=== PATIENT | female | born 1950 | race Caucasian/White ===

== ENCOUNTER → 2016-11-30 | Outpatient (CLI) | payer MEDICARE ==
[2016-11-30 16:34] VITALS: BP 129/60; PULSE 98; RESP 16; TEMP 98.1; BMI 48.7
== END | disposition home or self-care (01) ==
LOC: BARWHC3 15:27
PROVIDERS: ATTEND Surgery Plastic and Reconstructive Surgery
DX: Z01.818 Encounter for other preprocedural examination (principal); E66.01 Morbid (severe) obesity due to excess calories; D50.8 Other iron deficiency anemias; E44.0 Moderate protein-calorie malnutrition; E55.9 Vitamin D deficiency, unspecified; E11.9 Type 2 diabetes mellitus without complications; Z68.42 Body mass index [BMI] 45.0-49.9, adult
CPT/HCPCS: 99201

== ENCOUNTER 2017-01-04 06:44 | Day surgery (SDC) | payer MEDICARE ==
[2017-01-02 16:14] VITALS: BMI 48.7
[~2017-01-04 06:44] MED LIST: LACTATED RINGERS 1,000 ML IV SCH
[2017-01-04 07:26] VITALS: RESP 20; TEMP 98
[2017-01-04] MEDS ORDERED: LIDOCAINE 1% INJ 10MG/ML (20 ML MDV) ONE (07:30)
[2017-01-04] MEDS ORDERED: PROPOFOL 10 MG/ML 20 ML VIAL IV ONE (07:30)
[2017-01-04 07:31] LABS: Glucose,Whole Blood 99 mg/dL (75-99)
--- NOTE | 2017-01-04 07:37 | P.GSHP ---
History of Present Illness H&P Date: 01/04/17 CHIEF COMPLAINT: GERD HISTORY OF PRESENT ILLNESS: The patient is a 66-year-old female who presents reports gastroesophageal reflux disease. Upper endoscopy was offered for further evaluation and management. PAST MEDICAL HISTORY: Please see list. PAST SURGICAL HISTORY: Please see list. MEDICATIONS: Please see list. ALLERGIES: Please see list. SOCIAL HISTORY: No illicit drug use FAMILY HISTORY: No reports of Crohn disease or ulcerative colitis. REVIEW OF ORGAN SYSTEMS: CONSTITUTIONAL: No reports of fevers or chills. GI: Denies any blood in stools or constipation. PHYSICAL EXAM: VITAL SIGNS: Stable GENERAL: Well-developed and pleasant in no acute distress. HEENT: No scleral icterus. Extraocular movements grossly intact. Moist buccal mucosa. NECK: Supple without lymphadenopathy. CHEST: Unlabored respirations. Equal bilateral excursions. CARDIOVASCULAR: Regular rate and rhythm. Distal 2+ pulses. ABDOMEN: Soft, nondistended. MUSCULOSKELETAL: No clubbing, cyanosis, or edema. ASSESSMENT: 1. Gastroesophageal reflux disease PLAN: 1. 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 , RECEIVES INJECTIONS IN HER RIGHT EYE -(EYLEA) History of Any Multi-Drug Resistant Organisms: None Reported Past Surgical History: Section, Orthopedic Surgery Additional Past Surgical History / Comment(s): TRIGGER FINGER SURGERY, RIGHT TOTAL HIP, CATARACTS, LEFT EYE SURGERY FOR GLAUCOMA. Past Anesthesia/Blood Transfusion Reactions: No Reported Reaction Past Psychological History: No Psychological Hx Reported Smoking Status: Never smoker Past Alcohol Use History: None Reported Past Drug Use History: None Reported - Past Family History Father Family Medical History: Cancer Additional Family Medical History / Comment(s): URETER, COLON & PANCREATIC CANCER. Mother Family Medical History: Cancer Additional Family Medical History / Comment(s): KIDNEY CANCER WITH METS TO BRAIN. Medications and Allergies Home Medications Medication Instructions Recorded Confirmed Type Aspirin 325 mg PO DAILY 11/30/16 01/04/17 History Insulin Glargine [Lantus] 20 units SQ HS PRN 11/30/16 01/04/17 History Omeprazole [PriLOSEC] 20 mg PO DAILY 11/30/16 01/04/17 History metFORMIN HCL 1,000 tab PO BID 11/30/16 01/04/17 History Cholecalciferol [Vitamin D3] 1,000 unit PO DAILY 01/02/17 01/04/17 History Glimepiride [Amaryl] 4 mg PO BID 01/02/17 01/04/17 History Insulin Glargine [Lantus] 24 unit SQ HS PRN 01/02/17 01/04/17 History Krill Oil (Unknown Dose) 1 cap PO DAILY 01/02/17 History Lisinopril [Zestril] 10 mg PO DAILY 01/02/17 01/04/17 History Multivitamin [Multivitamins Adult 2 tab PO DAILY 01/02/17 01/04/17 History Gummies] Vitamin E Acetate [Vitamin E] 200 unit PO DAILY 01/02/17 01/04/17 History Allergies Allergy/AdvReac Type Severity Reaction Status Date / Time celecoxib [From Celebrex] Allergy Rash/Hives Verified 01/02/17 15:29 Surgical - Exam Vital Signs Temp Pulse Resp BP Pulse Ox 98.0 F 82 20 171/76 98 01/04/17 07:24 01/04/17 07:24 01/04/17 07:24 01/04/17 07:24 01/04/17 07:24
--- NOTE | 2017-01-04 07:55 | P.PCN ---
Date of Procedure: 01/04/17 Description of Procedure: PREOPERATIVE DIAGNOSIS: Gastroesophageal reflux disease. Morbid obesity. POSTOPERATIVE DIAGNOSIS: Morbid obesity. Gastritis. Gastroesophageal reflux disease. Diaphragmatic hiatal hernia without obstruction. Gastric polyps at GE junction. Erosive esophagitis. OPERATION: Esophagogastroduodenoscopy with snare polypectomy at GE junction. Esophagogastroduodenoscopy with biopsies along antrum. SURGEON: Ximena Ferrera MD ANESTHESIA: MAC. INDICATIONS: The patient is a 66-year-old female who presents with a history of reflux disease. Benefits and risks of the procedure were described. Informed consent was obtained. DESCRIPTION: The patient was brought into the endoscopy suite and laid in the left lateral decubitus position. An Olympus gastroscope was passed along the posterior oropharynx down to the distal esophagus where the squamocolumnar junction was encountered at 38 cm from the incisors. The stomach was entered and no bile reflux was found. Additional findings are listed below. Biopsies with cold forceps were obtained of the antrum. The first through third portion of the duodenum was examined and unremarkable. Retroflexion of the scope confirmed Hill grade 3 lower esophageal valve. The squamocolumnar junction demostrated LA grade B erosive esophagitis. The stomach was desufflated. The patient tolerated the procedure well. FINDINGS: Squamocolumnar junction 36 cm from the incisors. Diaphragmatic hiatus at 38 cm. Hiatal hernia 2 cm. Hill grade 4 lower esophageal valve. LA grade B erosive esophagitis. Gastritis, superficial. Gastric polyp along GE junction 1 cm resected. No active duodenitis. RECOMMENDATIONS: Further recommendations pending results of pathology report. Upper endoscopy as needed. Plan - Discharge Summary New Discharge Prescriptions: No Action metFORMIN HCL 1,000 tab PO BID Aspirin 325 mg PO DAILY Omeprazole [PriLOSEC] 20 mg PO DAILY Insulin Glargine [Lantus] 20 units SQ HS PRN PRN Reason: Blood Sugar - High Lisinopril [Zestril] 10 mg PO DAILY Multivitamin [Multivitamins Adult Gummies] 2 tab PO DAILY Glimepiride [Amaryl] 4 mg PO BID Insulin Glargine [Lantus] 24 unit SQ HS PRN PRN Reason: Blood Sugar - High Vitamin E Acetate [Vitamin E] 200 unit PO DAILY Krill Oil (Unknown Dose) 1 cap PO DAILY Cholecalciferol [Vitamin D3] 1,000 unit PO DAILY Discharge Medication List Aspirin 325 mg PO DAILY 11/30/16 [History] Insulin Glargine [Lantus] 20 units SQ HS PRN 11/30/16 [History] Omeprazole [PriLOSEC] 20 mg PO DAILY 11/30/16 [History] metFORMIN HCL 1,000 tab PO BID 11/30/16 [History] Cholecalciferol [Vitamin D3] 1,000 unit PO DAILY 01/02/17 [History] Glimepiride [Amaryl] 4 mg PO BID 01/02/17 [History] Insulin Glargine [Lantus] 24 unit SQ HS PRN 01/02/17 [History] Krill Oil (Unknown Dose) 1 cap PO DAILY 01/02/17 [History] Lisinopril [Zestril] 10 mg PO DAILY 01/02/17 [History] Multivitamin [Multivitamins Adult Gummies] 2 tab PO DAILY 01/02/17 [History] Vitamin E Acetate [Vitamin E] 200 unit PO DAILY 01/02/17 [History]
[2017-01-04 08:36] VITALS: BP 110/66; PULSE 82
== END 2017-01-04 09:00 | disposition home or self-care (01) ==
LOC: ORWHC2ENDO 06:44
PROVIDERS: ATTEND Surgery Plastic and Reconstructive Surgery
DX: K29.50 Unspecified chronic gastritis without bleeding (principal); K21.0 Gastro-esophageal reflux disease with esophagitis; K44.9 Diaphragmatic hernia without obstruction or gangrene; K31.7 Polyp of stomach and duodenum; E66.01 Morbid (severe) obesity due to excess calories; E11.9 Type 2 diabetes mellitus without complications; H40.9 Unspecified glaucoma; H54.42 Blindness, left eye, normal vision right eye; I10 Essential (primary) hypertension; Z79.84 Long term (current) use of oral hypoglycemic drugs; Z79.82 Long term (current) use of aspirin; Z79.4 Long term (current) use of insulin; Z79.899 Other long term (current) drug therapy; Z88.6 Allergy status to analgesic agent
CPT/HCPCS: 88305; 88342; 43239; 43251; J2001; J2704

== ENCOUNTER → 2017-01-04 | Outpatient (CLI) | payer MEDICARE ==
[2017-01-04 09:35] LABS: EKG EKG PERFORMED
[2017-01-04 10:14] LABS: CH 25.9; HCT 35.9 % (34.0-46.0); HDW 2.57; HGB 11.4 gm/dL (11.4-16.0); Hypochromasia Slight; MCH 26.8 pg (25.0-35.0); MCHC 31.9 g/dL (31.0-37.0); MCV 84.1 fL (80.0-100.0); Mean Platelet Volume 7.7; RBC 4.26 m/uL (3.80-5.40); RDW 14.1 % (11.5-15.5); WBC 7.8 k/uL (3.8-10.6)
[2017-01-04 12:25] LABS: Hemoglobin A1C 8.1 % (4.2-6.1)
[2017-01-04 12:44] LABS: ALT 32 U/L (9-52); AST 21 U/L (14-36); Alkaline Phosphatase 71 U/L (38-126); Anion Gap 10 mmol/L; Blood Urea Nitrogen 37 mg/dL (7-17); Calcium 9.6 mg/dL (8.4-10.2); Carbon Dioxide 24 mmol/L (22-30); Chloride 106 mmol/L (98-107); Cholesterol 172 mg/dL (<200); Glucose 89 mg/dL (74-99); HDL Cholesterol 57 mg/dL (40-60); Iron 41 ug/dL (37-170); Non-African American GFR(MDRD) 41 (>60 ml/min/1.73 sqM); Potassium 5.1 mmol/L (3.5-5.1); Sodium 140 mmol/L (137-145); Total Bilirubin 0.2 mg/dL (0.2-1.3); Total Protein 6.5 g/dL (6.3-8.2)
[2017-01-04 12:53] LABS: % Iron Saturation 12.5 % (20-50); Total Iron Binding Capacity 327 ug/dL (265-497)
[2017-01-04 13:29] LABS: Vitamin B12 365 pg/mL
== END | disposition home or self-care (01) ==
LOC: LABWHC1 09:11
PROVIDERS: ATTEND Surgery Plastic and Reconstructive Surgery
DX: E66.01 Morbid (severe) obesity due to excess calories (principal); Z68.43 Body mass index [BMI] 50.0-59.9, adult; E89.1 Postprocedural hypoinsulinemia; D50.8 Other iron deficiency anemias; E44.0 Moderate protein-calorie malnutrition; E55.9 Vitamin D deficiency, unspecified; I11.9 Hypertensive heart disease without heart failure; E11.9 Type 2 diabetes mellitus without complications
CPT/HCPCS: 36415; 80053; 80061; 82306; 82607; 82728; 82746; 83036; 83540; 83550; 84425; 84443; 85027; 93005

== ENCOUNTER → 2017-01-12 | Outpatient (CLI) | payer MEDICARE ==
[2017-01-12 12:02] VITALS: BP 142/72; PULSE 80; RESP 16; TEMP 98.4; BMI 48.6
--- NOTE | 2017-01-23 08:18 | P.PN ---
Progress Note - Text DATE OF SERVICE: 01/12/2017 CHIEF COMPLAINT: Bariatric assessment. HISTORY OF PRESENT ILLNESS: Deann Wild is a 66-year-old female who presented to the bariatric center, November 2016. She has developed comorbidites of obstructive sleep apnea, diabetes type 2, osteoarthritis of the hips. Her highest weight at presentation is 258 pounds. Today she comes in at 257 pounds. She lost 1 pound in 1 month. At her height of 5 feet 1, her ideal body weight is 131 pounds. She comes in 126 pounds overweight. Her body mass index is 48.7. She completed an EGD and now she presents for follow-up. PAST MEDICAL HISTORY: 1. Morbid obesity. 2. Body mass index of 48.8 3. Gastroesophageal reflux disease. 4. Obstructive sleep apnea. 5. Diabetes type 2 insulin-dependent. 6. Hypertensive heart disease. 7. Vitamin D deficiency. 8. Glaucoma. PAST SURGICAL HISTORY: 1. . 2. Right hip surgery. 3. Bilateral Cataract extraction HOME MEDICATIONS: 1. Insulin. 2. Metformin. 3. Amaryl. 4. Omeprazole. 5. Aspirin. 6. Vitamin E. 7. Multivitamin. 8. Lisinopril. 9. Krill Oil. 10. Vitamin D. ALLERGIES: 1. CELECOXIB SOCIAL HISTORY: No active tobacco use. She is . FAMILY HISTORY: Has family history of ulcerative colitis disease and Crohn's disease. She does have a family history of morbid obesity. Significant for stomach cancer. REVIEW OF ORGAN SYSTEMS: CONSTITUTIONAL: Her highest weight is at presentation 258 pounds. Weight of 257 pounds. At her height of 5 feet 1, her ideal body weight is 131 pounds. She comes in 126 pounds overweight. Her body mass index is 48.7. HEENT: Denies any active troubles with vision or hearing. ENDOCRINE: Has diabetes. No hypothyroidism. CARDIOVASCULAR: No reports of palpitations or heart attacks or chest pain. RESPIRATORY: Has daytime somnolence including snoring, suspicious for sleep apnea. No recent asthma. GI: Denies any bright red blood per rectum, diarrhea or constipation. Does have gastroesophageal reflux disease as described above. MUSCULOSKELETAL: Describes generalized muscle aches. Has lower back pain and joint pain. NEURO: There were no reports of headaches or seizure disorders. PSYCH: Has depression without suicidal ideation. HEMATOLOGIC: Denies any abnormal bleeding or bruising. SKIN: No rash. No skin cancer. PHYSICAL EXAM: VITAL SIGNS: Height 5 foot 1 inches, weight 257 pounds. BMI 48.7. Vital Signs Temp 98.4 F 01/12/17 11:59 Pulse 80 01/12/17 11:59 Resp 16 01/12/17 11:59 BP 142/72 01/12/17 11:59 Pulse Ox GENERAL: Well-developed female in no acute distress. HEENT: No scleral icterus. Extraocular movements grossly intact. Hears conversational speech. No nasal drainage. NECK: Supple without lymphadenopathy. CHEST: Nonlabored respirations with equal bilateral excursions. CARDIOVASCULAR: Regular rate. Distal 2+ pulses. ABDOMEN: Obese, soft, nontender, nondistended. MUSCULOSKELETAL: No clubbing, cyanosis, or edema. Gross strength 5/5 distal lower extremities. NEURO: No focal or lateralizing signs. Cranial nerves 2 through 12 grossly within normal limits. PSYCH: Appropriate affect. Alert and oriented to person, place and time. SKIN: Good skin turgor. Well perfused. LABS: Creatinine elevated at 1.4. Hemoglobin A1C elevated at 8.1%. TSH suppressed. EKG: reviewed demonstrating marked sinus arrhythmia. EGD FINDINGS: Squamocolumnar junction 36 cm from the incisors. Diaphragmatic hiatus at 38 cm. Hiatal hernia 2 cm. Hill grade 4 lower esophageal valve. LA grade B erosive esophagitis. Gastritis, superficial. Gastric polyp along GE junction 1 cm resected. No active duodenitis. Gastric polyps ASSESSMENT: 1. Morbid obesity. 2. Body mass index of 48.7. 3. Gastroesophageal reflux disease. 4. Obstructive sleep apnea. 5. Diabetes type 2 insulin-dependent. 6. Hypertensive heart disease. 7. Vitamin D deficiency. 8. Glaucoma. 9. Osteoarthritis involving the bilateral hips. 10. Osteoarthritis of the bilateral knees. 11. Dietary surveillance and counseling. 12. Family history of stomach cancer. PLAN: 1. Her laboratory results were reviewed in detail also demonstrating suppressed TSH level. Recommend adjustment of thyroid medication. 2. With a history of diabetes including hypertension, recommend cardiac risk assessment as EKG demonstrates sinus arrhythmia. 3. She is looking into bariatric procedures where referral to bariatric dietitian is advised. 4. She i sstill pending psych assessment including medical risk assessment. 5. She has history of daytime somnolence including high suspicion for sleep apnea. Recommend referral and treatment.
== END | disposition home or self-care (01) ==
LOC: BARWHC3 10:28
PROVIDERS: ATTEND Surgery Plastic and Reconstructive Surgery
DX: Z48.815 Encounter for surgical aftercare following surgery on the digestive system (principal); E66.01 Morbid (severe) obesity due to excess calories; Z68.42 Body mass index [BMI] 45.0-49.9, adult; K21.9 Gastro-esophageal reflux disease without esophagitis; G47.33 Obstructive sleep apnea (adult) (pediatric); I11.9 Hypertensive heart disease without heart failure; E55.9 Vitamin D deficiency, unspecified; E11.9 Type 2 diabetes mellitus without complications; Z79.4 Long term (current) use of insulin; H40.9 Unspecified glaucoma; M16.0 Bilateral primary osteoarthritis of hip; M17.0 Bilateral primary osteoarthritis of knee; Z71.3 Dietary counseling and surveillance; Z80.0 Family history of malignant neoplasm of digestive organs; Z88.6 Allergy status to analgesic agent; Z79.899 Other long term (current) drug therapy; Z79.82 Long term (current) use of aspirin; Z98.84 Bariatric surgery status
CPT/HCPCS: 99211

== ENCOUNTER → 2017-03-01 | Outpatient (CLI) | payer MEDICARE ==
[2017-03-01 15:57] VITALS: BP 125/62; PULSE 93; RESP 16; TEMP 98.2; BMI 49.8
--- NOTE | 2017-04-24 20:01 | P.PN ---
Progress Note - Text Progress Note Date: 03/01/17 DATE OF SERVICE: 03/01/2017 CHIEF COMPLAINT: Bariatric assessment. HISTORY OF PRESENT ILLNESS: Deann Wild is a 66-year-old female who presented to the bariatric center, November 2016. She has developed comorbidites of obstructive sleep apnea, diabetes type 2, osteoarthritis of the hips. Her highest weight is 263 pounds, today. She gained 6 pounds in 2 months. At her height of 5 feet 1, her ideal body weight is 131 pounds. She comes in 132 pounds overweight. Her body mass index is 49.8. She comes in with symptoms obstructive sleep apnea. She has completed cardiac risk assessment. As a result of her obesity, she has developed diabetes type 2, esophageal reflux, obstructive sleep apnea, osteoarthritis and hypertension. She is looking to the gastric bypass. PAST MEDICAL HISTORY: 1. Morbid obesity. 2. Body mass index of 48.8 3. Gastroesophageal reflux disease. 4. Obstructive sleep apnea. 5. Diabetes type 2 insulin-dependent. 6. Hypertensive heart disease. 7. Vitamin D deficiency. 8. Glaucoma. PAST SURGICAL HISTORY: 1. . 2. Right hip surgery. 3. Bilateral Cataract extraction HOME MEDICATIONS: 1. Insulin. 2. Metformin. 3. Amaryl. 4. Omeprazole. 5. Aspirin. 6. Vitamin E. 7. Multivitamin. 8. Lisinopril. 9. Krill Oil. 10. Vitamin D. ALLERGIES: 1. CELECOXIB SOCIAL HISTORY: No active tobacco use. She is . FAMILY HISTORY: Has family history of ulcerative colitis disease and Crohn's disease. She does have a family history of morbid obesity. Significant for stomach cancer. REVIEW OF ORGAN SYSTEMS: CONSTITUTIONAL: Her highest weight is at presentation 263 pounds. . At her height of 5 feet 1, her ideal body weight is 131 pounds. She comes in 132 pounds overweight. Her body mass index is 49.8. HEENT: Denies any active troubles with vision or hearing. ENDOCRINE: Has diabetes. No hypothyroidism. CARDIOVASCULAR: No reports of palpitations or heart attacks or chest pain. Cardiac risk assessment completed. RESPIRATORY: Has daytime somnolence including snoring, suspicious for sleep apnea. No recent asthma. GI: Denies any bright red blood per rectum, diarrhea or constipation. Does have gastroesophageal reflux disease as described above. MUSCULOSKELETAL: Describes generalized muscle aches. Has lower back pain and joint pain. NEURO: There were no reports of headaches or seizure disorders. PSYCH: Has depression without suicidal ideation. HEMATOLOGIC: Denies any abnormal bleeding or bruising. SKIN: No rash. No skin cancer. PHYSICAL EXAM: VITAL SIGNS: Height 5 foot 1 inches, weight 263 pounds. BMI 49.8. Vital Signs Temp 98.2 F 03/01/17 15:50 Pulse 93 03/01/17 15:50 Resp 16 03/01/17 15:50 BP 125/62 03/01/17 15:50 Pulse Ox GENERAL: Well-developed female in no acute distress. HEENT: No scleral icterus. Extraocular movements grossly intact. Hears conversational speech. No nasal drainage. NECK: Supple without lymphadenopathy. CHEST: Nonlabored respirations with equal bilateral excursions. CARDIOVASCULAR: Regular rate. Distal 2+ pulses. ABDOMEN: Obese, soft, nontender, nondistended. MUSCULOSKELETAL: No clubbing, cyanosis, or edema. Gross strength 5/5 distal lower extremities. NEURO: No focal or lateralizing signs. Cranial nerves 2 through 12 grossly within normal limits. PSYCH: Appropriate affect. Alert and oriented to person, place and time. SKIN: Good skin turgor. Well perfused. LABS: Creatinine elevated at 1.4. Hemoglobin A1C elevated at 8.1%. TSH suppressed. EKG: reviewed demonstrating marked sinus arrhythmia. EGD FINDINGS: Hiatal hernia 2 cm. Hill grade 4 lower esophageal valve. LA grade B erosive esophagitis. ASSESSMENT: 1. Morbid obesity. 2. Body mass index of 49.8. 3. Gastroesophageal reflux disease. 4. Obstructive sleep apnea. 5. Diabetes type 2 insulin-dependent. 6. Hypertensive heart disease. 7. Vitamin D deficiency. 8. Glaucoma. 9. Osteoarthritis involving the bilateral hips. 10. Osteoarthritis of the bilateral knees. 11. Dietary surveillance and counseling. 12. Family history of stomach cancer. PLAN: 1. She is pending sleep assessment for sleep apnea. 2. She is looking into a gastric bypass. [place] bariat[facility] surgical collaborative data was reviewed in detail including benefits and risks. 3. Recommend dietary classes for gastrectomy procedures. 4. Follow-up after completion of bariatric metabolic profile.
== END | disposition home or self-care (01) ==
LOC: BARWHC3 14:27
PROVIDERS: ATTEND Surgery Plastic and Reconstructive Surgery
DX: Z48.815 Encounter for surgical aftercare following surgery on the digestive system (principal); E66.01 Morbid (severe) obesity due to excess calories; K21.9 Gastro-esophageal reflux disease without esophagitis; G47.33 Obstructive sleep apnea (adult) (pediatric); E11.9 Type 2 diabetes mellitus without complications; I11.9 Hypertensive heart disease without heart failure; E55.9 Vitamin D deficiency, unspecified; H40.9 Unspecified glaucoma; M16.0 Bilateral primary osteoarthritis of hip; M17.0 Bilateral primary osteoarthritis of knee; Z68.42 Body mass index [BMI] 45.0-49.9, adult; Z79.4 Long term (current) use of insulin; Z71.3 Dietary counseling and surveillance; Z79.82 Long term (current) use of aspirin; Z79.899 Other long term (current) drug therapy; Z88.6 Allergy status to analgesic agent
CPT/HCPCS: 99211

== ENCOUNTER → 2017-03-22 | Outpatient (CLI) | payer MEDICARE ==
--- NOTE | 2017-03-22 17:57 | PN ---
PROGRESS NOTE DATE OF SERVICE: 03/22/2017 66-year-old lady has been followed in the Sleep Center to discuss results of the diagnostic sleep study and following plan. I discussed results of diagnostic sleep study with patient in details. She has severe obstructive sleep apnea with apnea-hypopnea index of 31.4 and oxygen desaturation to extremely low 36.2% in REM sleep. [place] Sleepiness Scale today is 5. MEDICATIONS: Zestril, Lantus, metformin, Prilosec, Amaryl, insulin. PHYSICAL EXAM: Patient in no distress. BP 157/89, HR 99, RR 18, temperature 98.2, oxygen saturation room air 94%. Oropharynx extremely low position of soft palate. Mallampati 4. Neck Supple, no JVD. Thyroid is not palpable. LUNGS Clear to percussion and to auscultation. Good air exchange. No wheezing or rhonchi. HEART S1, S2 regular. No murmurs, gallops, or rubs. ABDOMEN: Obese. Soft and nontender. Bowel sounds are present. No organomegaly appreciated. EXTREMITIES No clubbing or cyanosis. FIELD TRAINER Awake, alert, and oriented X3. Cranial nerves 2 to 7 intact. There is no fasciculation or atrophy. noted. No focal deficits observed. PLAN: 1. CPAP titration for correction of respiratory abnormalities during sleep. 2. Losing weight. 3. Sleep hygiene with regular time in bed for at least 8 hours. 4. No driving if feeling sleepiness. Thank you very much for allowing me to participate in management of your patient. Sincerely, Rowdy Valle MD, PhD, FAASM Diplomat of [employer]ver Picture of [facility] [place] MMODL / MAGDIELN: [id number] /
== END | disposition home or self-care (01) ==
LOC: SLEEP 14:35
PROVIDERS: ATTEND Internal Medicine
DX: G47.33 Obstructive sleep apnea (adult) (pediatric) (principal); Z79.4 Long term (current) use of insulin

== ENCOUNTER → 2017-05-24 | Outpatient (CLI) | payer MEDICARE ==
[2017-05-24 15:25] LABS: Basophils # (A) 0.1 k/uL (0-0.2); Basophils % (A) 1 %; Eosinophils # (A) 0.2 k/uL (0-0.7); Eosinophils % (A) 3 %; HCT 34.7 % (34.0-46.0); HGB 10.6 gm/dL (11.4-16.0); Hypochromasia Slight; Lymphocytes # (A) 2.3 k/uL (1.0-4.8); Lymphocytes % (A) 40 %; MCH 25.3 pg (25.0-35.0); MCHC 30.5 g/dL (31.0-37.0); MCV 83.1 fL (80.0-100.0); Mean Platelet Volume 7.7; Monocytes # (A) 0.2 k/uL (0-1.0); Monocytes % (A) 4 %; Neutrophils # (A) 2.9 k/uL (1.3-7.7); Neutrophils % (A) 50 %; Platelet Count 315 k/uL (150-450); RBC 4.18 m/uL (3.80-5.40); RDW 14.3 % (11.5-15.5); WBC 5.7 k/uL (3.8-10.6)
[2017-05-24 15:50] LABS: ALT 36 U/L (9-52); AST 26 U/L (14-36); Albumin 3.8 g/dL (3.5-5.0); Alkaline Phosphatase 60 U/L (38-126); Anion Gap 11 mmol/L; Blood Urea Nitrogen 26 mg/dL (7-17); Calcium 10.2 mg/dL (8.4-10.2); Carbon Dioxide 26 mmol/L (22-30); Chloride 104 mmol/L (98-107); Glucose 87 mg/dL (74-99); Potassium 4.7 mmol/L (3.5-5.1); Sodium 141 mmol/L (137-145); Total Bilirubin 0.2 mg/dL (0.2-1.3); Total Protein 6.7 g/dL (6.3-8.2)
[2017-05-25 00:38] LABS: Hemoglobin A1C 9.3 % (4.0-6.0)
== END | disposition home or self-care (01) ==
LOC: LABPAT 14:50
PROVIDERS: ATTEND Surgery Plastic and Reconstructive Surgery
DX: Z01.812 Encounter for preprocedural laboratory examination (principal)
CPT/HCPCS: 36415; 80053; 83036; 85025; 86850; 86900; 86901

== ENCOUNTER → 2017-05-24 | Outpatient (CLI) | payer MEDICARE ==
[2017-05-24 15:30] VITALS: BP 141/65; PULSE 85; RESP 16; TEMP 97.5; BMI 50.5
--- NOTE | 2017-06-25 18:40 | P.PN ---
Subjective Progress Note Date: 05/24/17 DATE OF SERVICE: 05/24/2017 CHIEF COMPLAINT: Bariatric assessment. HISTORY OF PRESENT ILLNESS: Deann Wild is a 66-year-old female who presented to the bariatric center, November 2016. As a result of her morbid obesity, she is insulin-dependent diabetic including obstructive sleep apnea and hypertensive heart disease. His been undergoing medical supervised weight loss. Today she comes in at her highest weight of 267 pounds. Her body mass index is 50.5. At her height of 5 feet 1, her ideal body weight is 131 pounds. She comes in 136 pounds overweight. She has completed treatment for obstructive sleep apnea. She reports her blood sugars are under better control between 93 and 95. She is evaluating for the gastric bypass. PAST MEDICAL HISTORY: 1. Morbid obesity. 2. Body mass index of 50.5 3. Gastroesophageal reflux disease. 4. Obstructive sleep apnea. 5. Diabetes type 2 insulin-dependent. 6. Hypertensive heart disease. 7. Vitamin D deficiency. 8. Glaucoma. PAST SURGICAL HISTORY: 1. . 2. Right hip surgery. 3. Bilateral Cataract extraction HOME MEDICATIONS: 1. Insulin. 2. Metformin. 3. Amaryl. 4. Omeprazole. 5. Aspirin. 6. Vitamin E. 7. Multivitamin. 8. Lisinopril. 9. Krill Oil. 10. Vitamin D. ALLERGIES: 1. CELECOXIB SOCIAL HISTORY: No active tobacco use. She is . FAMILY HISTORY: Has family history of ulcerative colitis disease and Crohn's disease. She does have a family history of morbid obesity. Significant for stomach cancer. REVIEW OF ORGAN SYSTEMS: CONSTITUTIONAL: Her highest weight of 267 pounds. Her body mass index is 50.5. At her height of 5 feet 1, her ideal body weight is 131 pounds. She comes in 136 pounds overweight. At her height of 5 feet 1, her ideal body weight is 131 pounds. HEENT: Denies any active troubles with vision or hearing. ENDOCRINE: Has diabetes. No hypothyroidism. CARDIOVASCULAR: No reports of palpitations or heart attacks or chest pain. Cardiac risk assessment completed. RESPIRATORY: Has daytime somnolence including snoring, suspicious for sleep apnea. No recent asthma. GI: Denies any bright red blood per rectum, diarrhea or constipation. Does have gastroesophageal reflux disease as described above. MUSCULOSKELETAL: Describes generalized muscle aches. Has lower back pain and joint pain. NEURO: There were no reports of headaches or seizure disorders. PSYCH: Has depression without suicidal ideation. HEMATOLOGIC: Denies any abnormal bleeding or bruising. SKIN: No rash. No skin cancer. PHYSICAL EXAM: VITAL SIGNS: Height 5 foot 1 inches, weight 267 pounds. BMI 50.5. Vital Signs Temp 97.5 F L 05/24/17 15:28 Pulse 85 05/24/17 15:28 Resp 16 05/24/17 15:28 BP 141/65 05/24/17 15:28 Pulse Ox GENERAL: Well-developed female in no acute distress. HEENT: No scleral icterus. Extraocular movements grossly intact. Hears conversational speech. No nasal drainage. NECK: Supple without lymphadenopathy. CHEST: Nonlabored respirations with equal bilateral excursions. CARDIOVASCULAR: Regular rate. Distal 2+ pulses. ABDOMEN: Obese, soft, nontender, nondistended. MUSCULOSKELETAL: No clubbing, cyanosis, or edema. Gross strength 5/5 distal lower extremities. NEURO: No focal or lateralizing signs. Cranial nerves 2 through 12 grossly within normal limits. PSYCH: Appropriate affect. Alert and oriented to person, place and time. SKIN: Good skin turgor. Well perfused. ASSESSMENT: 1. Morbid obesity. 2. Body mass index of 50.5 3. Gastroesophageal reflux disease. 4. Obstructive sleep apnea. 5. Diabetes type 2 insulin-dependent. 6. Hypertensive heart disease. 7. Vitamin D deficiency. 8. Glaucoma. 9. Osteoarthritis involving the bilateral hips. 10. Osteoarthritis of the bilateral knees. 11. Dietary surveillance and counseling. 12. Family history of stomach cancer. PLAN: 1. Bariatric options between a sleeve, band and a Aly-en-Y gastric bypass were reviewed in detail. She elected for a Ayl-en-Y gastric bypass. Robotic assisted approach described. 2. The [place] [facility] Data was also reviewed with benefits and risks as described. 3. An 8 page second-generation bariatric consent form was reviewed in detail including potential of bleeding, infection, leaks, adequate weight loss, nutritional deficiencies which she demonstrated understanding of the risks. 4. Recommend 2 week high-protein low caloric 800 kcal diet to address hepatomegaly. 5. Preoperative labs including compress metabolic panel and CBC with type and screen. 6. DVT prophylaxis per [place] [facility]ariat[facility] collaborative. 7. Antibiotic prophylaxis. 8. Inpatient hospitalization anticipated for more than 2 nights. 9. All questions and concerns were addressed with the patient.
== END | disposition home or self-care (01) ==
LOC: BARWHC3 14:14
PROVIDERS: ATTEND Surgery Plastic and Reconstructive Surgery
DX: E66.01 Morbid (severe) obesity due to excess calories (principal); K21.9 Gastro-esophageal reflux disease without esophagitis; G47.33 Obstructive sleep apnea (adult) (pediatric); E11.9 Type 2 diabetes mellitus without complications; I11.9 Hypertensive heart disease without heart failure; E55.9 Vitamin D deficiency, unspecified; H40.9 Unspecified glaucoma; M16.0 Bilateral primary osteoarthritis of hip; M17.0 Bilateral primary osteoarthritis of knee; Z71.3 Dietary counseling and surveillance; Z80.0 Family history of malignant neoplasm of digestive organs; Z79.84 Long term (current) use of oral hypoglycemic drugs; Z68.43 Body mass index [BMI] 50.0-59.9, adult; Z79.82 Long term (current) use of aspirin; Z79.4 Long term (current) use of insulin; Z79.899 Other long term (current) drug therapy; Z88.6 Allergy status to analgesic agent
CPT/HCPCS: 99211

== ENCOUNTER 2017-06-05 05:46 | Inpatient (IN) | payer MEDICARE ==
[2017-05-25 14:25] VITALS: BMI 50.4
[~2017-06-05 05:46] MED LIST changes: +DEXAMETHASONE SOD PHOSPHATE 10 MG/ML 1 ML VIAL IV ONE; -LACTATED RINGERS 1,000 ML IV SCH; +LIDOCAINE 1% 20 ML VIAL (10MG/ML) FOR IV START INTRADERMA PRN; +ONDANSETRON 4 MG/2 ML VIAL IVP ONE; +SCOPOLAMINE 1.5MG/72HR PATCH TRANSDERM ONE
[2017-06-05] MEDS ORDERED: ENOXAPARIN 40 MG/0.4 ML SYRINGE SQ STA (06:24)
[2017-06-05] MEDS ORDERED: PANTOPRAZOLE 40 MG/10 ML VIAL IV STA (06:24)
[2017-06-05] MEDS ORDERED: CHLORHEXIDINE GLUCONATE 15 ML CUP MUCOUS MEM STA (06:24)
--- NOTE | 2017-06-05 06:30 | P.GSHP ---
History of Present Illness H&P Date: 06/05/17 CHIEF COMPLAINT: Bariatric assessment. HISTORY OF PRESENT ILLNESS: Deann Wild is a 66-year-old female who presented to the bariatric center, November 2016. She has developed comorbidites of obstructive sleep apnea, diabetes type 2, osteoarthritis of the hips. At her height of 5 feet 1, her ideal body weight is 131 pounds. She comes in [id number] pounds overweight. Her body mass index is 50.4. She comes in with symptoms obstructive sleep apnea. She has completed cardiac risk assessment. As a result of her obesity, she has developed diabetes type 2, esophageal reflux , obstructive sleep apnea, osteoarthritis and hypertension. She is looking to the gastric bypass. PAST MEDICAL HISTORY: 1. Morbid obesity. 2. Body mass index of 50.4. 3. Gastroesophageal reflux disease. 4. Obstructive sleep apnea. 5. Diabetes type 2 insulin-dependent. 6. Hypertensive heart disease. 7. Vitamin D deficiency. 8. Glaucoma. PAST SURGICAL HISTORY: 1. . 2. Right hip surgery. 3. Bilateral Cataract extraction HOME MEDICATIONS: 1. Insulin. 2. Metformin. 3. Amaryl. 4. Omeprazole. 5. Aspirin. 6. Vitamin E. 7. Multivitamin. 8. Lisinopril. 9. Krill Oil. 10. Vitamin D. ALLERGIES: 1. CELECOXIB SOCIAL HISTORY: No active tobacco use. She is . FAMILY HISTORY: Has family history of ulcerative colitis disease and Crohn's disease. She does have a family history of morbid obesity. Significant for stomach cancer. REVIEW OF ORGAN SYSTEMS: CONSTITUTIONAL: Her highest weight is at presentation 263 pounds. . At her height of 5 feet 1, her ideal body weight is 131 pounds. She comes in 135 pounds overweight. Her body mass index is 50.4.. HEENT: Denies any active troubles with vision or hearing. ENDOCRINE: Has diabetes. No hypothyroidism. CARDIOVASCULAR: No reports of palpitations or heart attacks or chest pain. Cardiac risk assessment completed. RESPIRATORY: Has daytime somnolence including snoring, suspicious for sleep apnea. No recent asthma. GI: Denies any bright red blood per rectum, diarrhea or constipation. Does have gastroesophageal reflux disease as described above. MUSCULOSKELETAL: Describes generalized muscle aches. Has lower back pain and joint pain. NEURO: There were no reports of headaches or seizure disorders. PSYCH: Has depression without suicidal ideation. HEMATOLOGIC: Denies any abnormal bleeding or bruising. SKIN: No rash. No skin cancer. PHYSICAL EXAM: VITAL SIGNS: Height 5 foot 1 inches, weight 266 pounds. BMI 50.4. GENERAL: Well-developed female in no acute distress. HEENT: No scleral icterus. Extraocular movements grossly intact. Hears conversational speech. No nasal drainage. NECK: Supple without lymphadenopathy. CHEST: Nonlabored respirations with equal bilateral excursions. CARDIOVASCULAR: Regular rate. Distal 2+ pulses. ABDOMEN: Obese, soft, nontender, nondistended. MUSCULOSKELETAL: No clubbing, cyanosis, or edema. Gross strength 5/5 distal lower extremities. NEURO: No focal or lateralizing signs. Cranial nerves 2 through 12 grossly within normal limits. PSYCH: Appropriate affect. Alert and oriented to person, place and time. SKIN: Good skin turgor. Well perfused. ASSESSMENT: 1. Morbid obesity. 2. Body mass index of 50.4. 3. Gastroesophageal reflux disease. 4. Obstructive sleep apnea. 5. Diabetes type 2 insulin-dependent. 6. Hypertensive heart disease. 7. Vitamin D deficiency. 8. Glaucoma. 9. Osteoarthritis involving the bilateral hips. 10. Osteoarthritis of the bilateral knees. 11. Dietary surveillance and counseling. 12. Family history of stomach cancer. PLAN: 1. Bariatric options between a sleeve and a Aly-en-Y gastric bypass were reviewed in detail. She elected for a Aly-en-Y gastric bypass. Robotic assisted advised. 2. The [place] [facility] Data was also reviewed with benefits and risks as described. 3. An 8 page second-generation bariatric consent form was reviewed in detail including potential of bleeding, infection, leaks, adequate weight loss, nutritional deficiencies which she demonstrated understanding of the risks. 4. DVT prophylaxis per [place] [facility]ariat[facility] surgery collaborative. 5. Antibiotic prophylaxis. 6. Inpatient hospitalization anticipated for more than 2 nights. 7. All questions and concerns were addressed with the patient. 8. Pre-op diabetic classes completed. 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 , RECEIVES INJECTIONS IN HER RIGHT EYE -(EYLEA) History of Any Multi-Drug Resistant Organisms: None Reported Past Surgical History: Section, Orthopedic Surgery Additional Past Surgical History / Comment(s): TRIGGER FINGER SURGERY, RIGHT TOTAL HIP, CATARACTS, LEFT EYE SURGERY FOR GLAUCOMA. Past Anesthesia/Blood Transfusion Reactions: No Reported Reaction Additional Past Anesthesia/Blood Transfusion Reaction / Comment(s): no hx blood transfusion Smoking Status: Never smoker - Past Family History Father Family Medical History: Cancer Additional Family Medical History / Comment(s): URETER, COLON & PANCREATIC CANCER. Mother Family Medical History: Cancer Additional Family Medical History / Comment(s): KIDNEY CANCER WITH METS TO BRAIN. Medications and Allergies Home Medications Medication Instructions Recorded Confirmed Type Aspirin 325 mg PO DAILY 11/30/16 06/05/17 History Insulin Glargine [Lantus] 15 units SQ HS 11/30/16 06/05/17 History metFORMIN HCL 1,000 tab PO BID 11/30/16 06/05/17 History Cholecalciferol [Vitamin D3] 1,000 unit PO DAILY 01/02/17 05/30/17 History Glimepiride [Amaryl] 4 mg PO BID 01/02/17 05/30/17 History Krill/[place]-3/Dha/Epa/Lipids 1 each PO DAILY 01/02/17 05/30/17 History [Krill Oil 350 mg Softgel] Lisinopril [Zestril] 10 mg PO QAM 01/02/17 05/30/17 History Multivitamin [Multivitamins Adult 2 tab PO DAILY 01/02/17 05/30/17 History Gummies] Vitamin E Acetate [Vitamin E] 200 unit PO DAILY 01/02/17 05/30/17 History Omeprazole 40 mg PO QAM 05/25/17 05/30/17 History Allergies Allergy/AdvReac Type Severity Reaction Status Date / Time celecoxib [From Celebrex] Allergy Rash/Hives Verified 06/05/17 06:13
[2017-06-05] MEDS: LACTATED RINGERS 1,000 ML IV SCH (06:43)
[2017-06-05 06:45] LABS: Glucose,Whole Blood 76 mg/dL (75-99)
[2017-06-05] MEDS ORDERED: fentaNYL (PF) 50 MCG/ML 2 ML AMP ONE (07:32)
[2017-06-05] MEDS ORDERED: NEOSTIGMINE 1 MG/ML 10 ML VIAL ONE (07:32)
[2017-06-05] MEDS ORDERED: MIDAZOLAM 2 MG/2 ML VIAL ONE (07:32)
[2017-06-05] MEDS ORDERED: LIDOCAINE 1% INJ 10MG/ML (20 ML MDV) ONE (07:32)
[2017-06-05] MEDS ORDERED: SUCCINYLCHOLINE CHLORIDE VIAL 200 MG/10 ML VIAL IV ONE (07:32)
[2017-06-05] MEDS ORDERED: KETAMINE 10 MG/ML 20 ML VIAL ONE (07:32)
[2017-06-05] MEDS ORDERED: ROCURONIUM BROMIDE 10 MG/ML 10 ML VIAL IV ONE (07:32)
[2017-06-05] MEDS ORDERED: PHENYLEPHRINE-0.9% NACL SYG 1 MG/10 ML SYRINGE ONE (07:32)
[2017-06-05] MEDS ORDERED: PROPOFOL 10 MG/ML 20 ML VIAL IV ONE (07:32)
[2017-06-05] MEDS ORDERED: GLYCOPYRROLATE 0.2 MG/ML 2 ML VIAL ONE (07:32)
[2017-06-05] MEDS ORDERED: HYDROmorphone (PF) 1 MG/ML ONE (07:32)
[2017-06-05] MEDS ORDERED: ePHEDrine 50 MG/ML 1 ML AMP ONE (07:32)
[2017-06-05] MEDS ORDERED: BUPIVACAINE (PF) 0.25% 30 ML VIAL SQ ONE (08:06)
[2017-06-05 08:29] LABS: Glucose,Whole Blood 125 mg/dL (75-99)
[2017-06-05] MEDS ORDERED: LACTATED RINGERS 1,000 ML IV ONE (09:55)
[2017-06-05] MEDS ORDERED: NALOXONE 0.4 MG/ML 1 ML VIAL IV PRN (12:50)
[2017-06-05] MEDS: HYDROmorphone 0.5 MG/0.5 ML SYRINGE IVP PRN ×2 (12:51→13:12)
[2017-06-05] MEDS ORDERED: HYDROcodone/APAP 15 ML SOLUTION PO PRN (12:56)
[2017-06-05 12:59] LABS: Glucose,Whole Blood 256 mg/dL (75-99)
--- NOTE | 2017-06-05 13:07 | P.PCN ---
Date of Procedure: 06/05/17 Preoperative Diagnosis: Morbid obesity, BMI 50.4, diabetes type 2, sleep apnea Postoperative Diagnosis: Same, fatty liver disease, hepatomegaly Procedure(s) Performed: Robotic gastric bypass 60 mm BP limb, 75 mm Aly-en-Y, antecolic antigastric, 25 mm Orvil Intraoperative upper endoscopy with removal of foreign body with snare Anesthesia: KOLBY, local Surgeon: Ximena Ferrera Estimated Blood Loss (ml): 60 Pathology: none sent Condition: stable Disposition: floor Operative Findings: 1. Hepatomegaly 2. Moderately thickened small bowel requiring blue loads 3. Green loads performed along gastric pouch. 4. Mallampati 3 with moderately thickened posterior oral pharyngeal tissues 5. Retrieval of Anvil along posterior oropharynx requiring snare technique for removal and placement in gastric pouch using cold biopsy forceps 6. Thin gastric stomach requiring reinforcement sutures at 6:00 9:00 and 3:00 of anastomosis.
[2017-06-05] MEDS ORDERED: INSULIN ASPART 100 UNIT/ML 1 ML 10 ML VIAL SQ ONE (13:30)
[2017-06-05] MEDS: HYDROmorphone 4 MG/ML 1 ML SYRINGE IVP PRN ×2 (14:40→23:45)
[2017-06-05] MEDS ORDERED: SCOPOLAMINE 1.5MG/72HR PATCH TRANSDERM STA (14:49)
[2017-06-05] MEDS: 0.9% NACL WITH KCL 20 MEQ/L 1,000 ML IV SCH ×2 (15:17→23:25)
[2017-06-05] MEDS: AMPICILLIN-SULBACTAM 3 GM in SODIUM CHLORIDE 0.9% 100 ML IVPB SCH ×2 (15:27→23:09)
[2017-06-05] MEDS: ALBUTEROL NEBULIZED 2.5 MG/3 ML INHALATION SCH ×2 (16:06→20:39)
[2017-06-05] MEDS: SIMETHICONE 40 MG/0.6 ML DROPS 2,000 MG/30 ML BOTTLE PO SCH ×2 (17:50→23:50)
[2017-06-05] MEDS: HYOSCYAMINE ORAL DROPS 1.875 MG/15 ML BOTTLE PO SCH ×2 (17:51→23:49)
[2017-06-05 18:57] LABS: Glucose,Whole Blood 238 mg/dL (75-99)
[2017-06-05] MEDS: INSULIN ASPART 100 UNIT/ML 1 ML 10 ML VIAL SQ SCH (19:09)
[2017-06-05] MEDS: ONDANSETRON 4 MG/2 ML VIAL IVP PRN (19:41)
[2017-06-05] MEDS: MAGNESIUM SULFATE-D5W PMX 1 GM in DEXTROSE/WATER 1 100ML.BAG IVPB SCH (23:52)
[2017-06-06] MEDS: INSULIN ASPART 100 UNIT/ML 1 ML 10 ML VIAL SQ SCH ×5 (00:06→23:24)
[2017-06-06 00:16] LABS: Glucose,Whole Blood 220 mg/dL (75-99)
[2017-06-06] MEDS: ONDANSETRON 4 MG/2 ML VIAL IVP PRN ×5 (00:45→23:24)
[2017-06-06] MEDS: MAGNESIUM SULFATE-D5W PMX 1 GM in DEXTROSE/WATER 1 100ML.BAG IVPB SCH ×3 (00:51→02:49)
[2017-06-06] MEDS: 0.9% NACL WITH KCL 20 MEQ/L 1,000 ML IV SCH ×3 (05:24→17:20)
[2017-06-06] MEDS: LACTATED RINGERS 1,000 ML IV SCH (05:25)
[2017-06-06] MEDS: HYOSCYAMINE ORAL DROPS 1.875 MG/15 ML BOTTLE PO SCH ×4 (06:08→23:25)
[2017-06-06] MEDS: SIMETHICONE 40 MG/0.6 ML DROPS 2,000 MG/30 ML BOTTLE PO SCH ×4 (06:08→23:24)
[2017-06-06 06:17] LABS: Glucose,Whole Blood 234 mg/dL (75-99)
[2017-06-06 07:52] LABS: Basophils % (A) 0 %; Eosinophils % (A) 0 %; HCT 31.5 % (34.0-46.0); HGB 9.5 gm/dL (11.4-16.0); Hypochromasia Moderate; Lymphocytes % (A) 15 %; MCH 25.4 pg (25.0-35.0); MCHC 30.2 g/dL (31.0-37.0); MCV 84.1 fL (80.0-100.0); Mean Platelet Volume 8.1; Monocytes # (A) 0.3 k/uL (0-1.0); Monocytes % (A) 5 %; Neutrophils # (A) 5.1 k/uL (1.3-7.7); Neutrophils % (A) 78 %; Platelet Count 244 k/uL (150-450); RBC 3.74 m/uL (3.80-5.40); WBC 6.5 k/uL (3.8-10.6)
[2017-06-06] MEDS: PANTOPRAZOLE 40 MG/10 ML VIAL IV SCH (08:02)
[2017-06-06] MEDS: LISINOPRIL 10 MG TAB PO SCH (08:02)
[2017-06-06] MEDS: ENOXAPARIN 40 MG/0.4 ML SYRINGE SQ SCH (08:02)
[2017-06-06 08:09] LABS: Anion Gap 10 mmol/L; Blood Urea Nitrogen 25 mg/dL (7-17); Carbon Dioxide 23 mmol/L (22-30); Chloride 106 mmol/L (98-107); Magnesium 2.1 mg/dL (1.6-2.3); Phosphorus 2.8 mg/dL (2.5-4.5); Potassium 4.8 mmol/L (3.5-5.1); Sodium 139 mmol/L (137-145)
[2017-06-06] MEDS: ALBUTEROL NEBULIZED 2.5 MG/3 ML INHALATION SCH ×4 (08:45→20:37)
--- NOTE | 2017-06-06 09:06 | XR ---
EXAMINATION TYPE: XR chest 2V DATE OF EXAM: 06/06/2017 COMPARISON: NONE HISTORY: Desaturation during sleep, postop TECHNIQUE: Frontal and lateral views of the chest are obtained. FINDINGS: Patchy bibasilar density is noted, lung volumes are low. Heart is enlarged. No evident pne umothorax. Central vascularity appears somewhat prominently. Patient is rotated. IMPRESSION: Cardiomegaly. Probable basilar atelectasis, correlate. Follow-up as indicated. Low lung volumes.
--- NOTE | 2017-06-06 09:32 | P.PN ---
Subjective Progress Note Date: 06/06/17 CHIEF COMPLAINT: s/p gastric bypass. HISTORY OF PRESENT ILLNESS: Deann Wild is a 66-year-old female s/p gastric bypass. She had moderate nausea now improved. She reports intolerance to liquid Bruni. She has severe sleep apnea with baseline oxygen destauration. PHYSICAL EXAM: VITAL SIGNS: Reviewed. GENERAL: Well-developed female in no acute distress. HEENT: No scleral icterus. Extraocular movements grossly intact. Hears conversational speech. No nasal drainage. NECK: Supple without lymphadenopathy. CHEST: Nonlabored respirations with equal bilateral excursions. CARDIOVASCULAR: Regular rate. Distal 2+ pulses. ABDOMEN: Obese, soft, no peritonitis. Appropriate incisional discomfort. MUSCULOSKELETAL: No clubbing, cyanosis, or edema. NEURO: No focal or lateralizing signs. PSYCH: Appropriate affect. Alert and oriented to person, place and time. SKIN: Good skin turgor. Well perfused. ASSESSMENT: 1. Morbid obesity. 2. Body mass index of 50.4. 3. Gastroesophageal reflux disease. 4. Obstructive sleep apnea. 5. Diabetes type 2 insulin-dependent. 6. Hypertensive heart disease. 7. Vitamin D deficiency. 8. Glaucoma. 9. Osteoarthritis involving the bilateral hips. 10. Osteoarthritis of the bilateral knees. 11. Dietary surveillance and counseling. 12. Family history of stomach cancer. 13. Status post gastric bypass. PLAN: 1. Treat low magnesium. 2. Adjust insulin level for home. 3. Pulmonary consultation for severe sleep apnea and desaturation for home oxygen evaluation. 4. Disposition home in 24 to 48 hours. 5. Incentive spirometry use. 6. Chest X-ray. Objective - Vital Signs Vital signs: Vital Signs Temp 98.6 F 06/06/17 07:59 Pulse 94 06/06/17 07:59 Resp 18 06/06/17 07:59 BP 96/52 06/06/17 08:01 Pulse Ox 93 L 06/06/17 07:59 Intake & Output 06/05/17 06/06/17 06/06/17 18:59 06:59 18:59 Intake Total 2049 1140 Output Total 410 250 Balance 1640 890 Weight 121.109 kg Intake: IV 2049 Intake, IV Titration 900 Amount 0.9% NaCl with KCl 20 Meq 600 /l 1,000 ml @ 100 mls/hr IV .Q10H [facility] Rx#: [id number] Ampicillin-Sulbactam 3 gm 100 In Sodium Chloride 0.9% 100 ml @ 100 mls/hr IVPB Q6H [facility] Rx#:[id number] Magnesium Sulfate-D5w Pmx 200 1 gm In Dextrose/Water 1 100ml.bag @ 100 mls/hr IVPB Q1H [facility] Rx#: [id number] Oral 240 Output: Urine 350 250 Estimated Blood Loss 60 Other: # Voids 3 - Labs CBC & Chem 7: 06/06/17 07:17 06/06/17 07:17 Labs: Abnormal Lab Results - Last 24 Hours (Table) 06/05/17 06/05/17 06/05/17 Range/Units 12:56 16:54 18:52 RBC (3.80-5.40) m/uL Hgb (11.4-16.0) gm/dL Hct (34.0-46.0) % MCHC (31.0-37.0) g/dL BUN (7-17) mg/dL Creatinine (0.52-1.04) mg/dL POC Glucose (mg/dL) 256 H 238 H (75-99) mg/dL Magnesium 1.2 L (1.6-2.3) mg/dL 06/06/17 06/06/17 06/06/17 Range/Units 00:04 06:15 07:17 RBC 3.74 L (3.80-5.40) m/uL Hgb 9.5 L (11.4-16.0) gm/dL Hct 31.5 L (34.0-46.0) % MCHC 30.2 L (31.0-37.0) g/dL BUN (7-17) mg/dL Creatinine (0.52-1.04) mg/dL POC Glucose (mg/dL) 220 H 234 H (75-99) mg/dL Magnesium (1.6-2.3) mg/dL 06/06/17 Range/Units 07:17 RBC (3.80-5.40) m/uL Hgb (11.4-16.0) gm/dL Hct (34.0-46.0) % MCHC (31.0-37.0) g/dL BUN 25 H (7-17) mg/dL Creatinine 1.08 H (0.52-1.04) mg/dL POC Glucose (mg/dL) (75-99) mg/dL Magnesium (1.6-2.3) mg/dL
[2017-06-06] MEDS: SODIUM FERRIC GLUCONAT-SUCROSE 125 MG in SODIUM CHLORIDE 0.9% 100 ML IVPB SCH (10:55)
[2017-06-06 11:35] LABS: Glucose,Whole Blood 180 mg/dL (75-99)
--- NOTE | 2017-06-06 11:40 | P.CNPUL ---
History of Present Illness Consult date: 06/06/17 Reason for consult: hypoxemia, obstructive sleep apnea, other Chief complaint: Low blood saturations History of present illness: Consult dated 06/06/2017 This is a 66-year-old female status post op day #1, Aly-en-Y gastric bypass. The patient has a history of underlying sleep apnea syndrome recently diagnosed about a month ago. She went to the [facility] [place] and saw one of the doctors there. She's been on CPAP for about a month and this really helped quite significantly. She has had a follow-up CPAP titration study. In addition , she has morbid obesity diabetes osteoarthritis. She also suffers from gastroesophageal reflux disease hypertension and vitamin D deficiency and glaucoma. Her surgical history includes previous right hip surgery and bilateral cataract extraction. Since being on CPAP, her saturations have improved. She denies any coughing or wheezing. States that she's taking deeper breaths. Denies any fever or chills. The patient is on her CPAP when I enter the room today. Her saturations are 98%. Even off the CPAP today while in the room, her saturations are 93%. I suspect some of her difficulty relates to basilar atelectasis from the obesity and not taking deep breaths. In addition, she likely has some pickwickian syndrome or obesity/hypoventilation syndrome. Finally, she may still be having some of the effects of anesthesia or and/or sedation from her recent surgery Review of Systems A 12 point review of system is negative. She denies any specific complaints at this time. 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 , RECEIVES INJECTIONS IN HER RIGHT EYE -(EYLEA) History of Any Multi-Drug Resistant Organisms: None Reported Past Surgical History: Section, Orthopedic Surgery Additional Past Surgical History / Comment(s): TRIGGER FINGER SURGERY, RIGHT TOTAL HIP, CATARACTS, LEFT EYE SURGERY FOR GLAUCOMA. Past Anesthesia/Blood Transfusion Reactions: No Reported Reaction Additional Past Anesthesia/Blood Transfusion Reaction / Comment(s): no hx blood transfusion Past Psychological History: No Psychological Hx Reported Smoking Status: Never smoker Past Alcohol Use History: None Reported Past Drug Use History: None Reported - Past Family History Father Family Medical History: Cancer Additional Family Medical History / Comment(s): URETER, COLON & PANCREATIC CANCER. Mother Family Medical History: Cancer Additional Family Medical History / Comment(s): KIDNEY CANCER WITH METS TO BRAIN. Medications and Allergies Home Medications Medication Instructions Recorded Confirmed Type Aspirin 325 mg PO DAILY 11/30/16 06/05/17 History Insulin Glargine [Lantus] 15 units SQ HS 11/30/16 06/05/17 History metFORMIN HCL 1,000 tab PO BID 11/30/16 06/05/17 History Cholecalciferol [Vitamin D3] 1,000 unit PO DAILY 01/02/17 06/05/17 History Glimepiride [Amaryl] 4 mg PO BID 01/02/17 06/05/17 History Krill/Seguin-3/Dha/Epa/Lipids 1 cap PO DAILY 01/02/17 06/05/17 History [Krill Oil 350 mg Softgel] Lisinopril [Zestril] 10 mg PO QAM 01/02/17 06/05/17 History Multivitamin [Multivitamins Adult 2 tab PO DAILY 01/02/17 06/05/17 History Gummies] Vitamin E Acetate [Vitamin E] 200 unit PO DAILY 01/02/17 06/05/17 History Omeprazole 40 mg PO QAM 05/25/17 06/05/17 History Allergies Allergy/AdvReac Type Severity Reaction Status Date / Time celecoxib [From Celebrex] Allergy Rash/Hives Verified 06/05/17 13:40 Physical Exam Osteopathic Statement: *. No significant issues noted on an osteopathic structural exam other than those noted in the History and Physical/Consult. Vitals: Vital Signs Temp Pulse Pulse Resp BP BP Pulse Ox 06/06/17 08:01 96/52 06/06/17 07:59 98.6 F 94 18 95/52 93 L 06/06/17 00:31 96 06/06/17 00:27 97 02/13/18 00:25 99.3 F 24 130/77 92 L 06/06/17 00:00 22 06/05/17 21:30 99.7 F H 109 H 22 133/78 94 L 06/05/17 20:49 111 H 06/05/17 20:39 111 H 18 91 L 06/05/17 18:00 16 160/86 06/05/17 17:45 60 16 181/78 100 06/05/17 17:30 62 16 172/70 90 L 06/05/17 17:15 54 L 16 194/72 96 06/05/17 17:00 62 16 184/82 100 06/05/17 16:45 66 16 154/88 06/05/17 16:30 97.8 F 69 16 168/67 95 06/05/17 16:03 90 L 06/05/17 14:00 85 18 127/55 92 L 06/05/17 13:45 85 18 127/61 92 L 06/05/17 13:30 71 18 129/60 92 L 06/05/17 13:15 78 18 133/61 95 06/05/17 13:00 78 18 136/60 93 L 06/05/17 12:45 87 18 136/64 92 L 06/05/17 12:34 98 F 88 18 132/59 92 L Intake and Output 06/05/17 06/06/17 06/06/17 22:59 06:59 14:59 Intake Total 500 640 Output Total 250 Balance 500 390 Intake: Intake, IV Titration 500 400 Amount 0.9% NaCl with KCl 20 Meq 300 300 /l 1,000 ml @ 100 mls/hr IV .Q10H [facility] Rx#: [id number] Ampicillin-Sulbactam 3 gm 100 In Sodium Chloride 0.9% 100 ml @ 100 mls/hr IVPB Q6H [facility] Rx#:[id number] Magnesium Sulfate-D5w Pmx 100 100 1 gm In Dextrose/Water 1 100ml.bag @ 100 mls/hr IVPB Q1H [facility] Rx#: [id number] Oral 240 Output: Urine 250 Other: # Voids 3 3 Weight 121.109 kg No acute distress, oriented 3. Nasal CPAP in place HEENT examination is grossly unremarkable. Mucous membranes are moist. No oral lesions. Neck supple. Full range of motion. No adenopathy thyromegaly or neck vein distention. Cardiovascular examination reveals regular rhythm rate. S1-S2 normal. No S3 or S4. No discernible murmur noted. Lungs reveal clear breath sounds. Her sounds are equal bilaterally. No adventitious lung sounds including wheezes rhonchi or crackles. Patient does not really take deep breaths. Abdomen soft bowel sounds are heard. No masses or tenderness. Extremities are intact. No cyanosis clubbing or edema. Skin is without rash or lesion. Neurologic examination is brief but nonfocal. Results - Laboratory Findings CBC and BMP: 06/06/17 07:17 06/06/17 07:17 Abnormal lab findings: Abnormal Labs 06/05/17 06/05/17 06/05/17 08:25 12:56 16:54 RBC Hgb Hct MCHC BUN Creatinine POC Glucose (mg/dL) 125 H 256 H Magnesium 1.2 L 06/05/17 06/06/17 06/06/17 18:52 00:04 06:15 RBC Hgb Hct MCHC BUN Creatinine POC Glucose (mg/dL) 238 H 220 H 234 H Magnesium 06/06/17 06/06/17 07:17 07:17 RBC 3.74 L Hgb 9.5 L Hct 31.5 L MCHC 30.2 L BUN 25 H Creatinine 1.08 H POC Glucose (mg/dL) Magnesium - Diagnostic Findings Chest x-ray: image reviewed (Labs x-rays a medications are all reviewed.) Assessment and Plan Assessment: Postoperative hypoxemia/low saturations, likely multifactorial. In part, this is related to obstructive sleep apnea syndrome, possible pickwickian syndrome, basilar atelectasis because the patient is not taking deep breaths, and prolonged sedative/anesthetic effect. Postop day #1 status post Aly-en-Y gastric bypass History of morbid obesity History of GERD History of recently diagnosed sleep apnea syndrome History of diabetes mellitus History of hypertension Glaucoma Vitamin D deficiency Plan: Plan dated 06/06/2017 I recommend the patient continue using her CPAP device. Also, if the patient could sit up more upright in bed that would be helpful. In addition, the patient should be using the incentive spirometer every hour while awake. We should try to limit any sedatives hypnotics narcotics and tranquilizers. Additional recommendations and suggestions are forthcoming. I suspect within 12 -24 hours, this will all improve. Time with Patient: Greater than 30
[2017-06-06] MEDS: HYDROmorphone 4 MG/ML 1 ML SYRINGE IVP PRN ×2 (13:42→18:28)
[2017-06-06 15:27] LABS: Iron Saturation 1.86 (12.00-45.00)
[2017-06-06] MEDS: ceFAZolin IN SWFI 2 GM/20 ML SYRINGE IVP SCH ×2 (15:31→23:32)
[2017-06-06 17:12] LABS: Glucose,Whole Blood 180 mg/dL (75-99)
--- NOTE | 2017-06-06 19:18 | P.PN ---
Progress Note - Text Progress Note Date: 06/06/17 Severe iron deficiency. Iron infusions started. Adjusted pain medications and insulin. Anticipated discharge home tomorrow.
[2017-06-06] MEDS: INSULIN DETEMIR 100 UNIT/ML 10 ML VIAL SQ SCH (20:27)
[2017-06-06 20:39] LABS: Glucose,Whole Blood 177 mg/dL (75-99)
[2017-06-06] MEDS: HYDROcodone/APAP 7.5-325MG 1 EACH TAB PO PRN (22:17)
[2017-06-06 23:29] LABS: Glucose,Whole Blood 181 mg/dL (75-99)
[2017-06-07] MEDS: 0.9% NACL WITH KCL 20 MEQ/L 1,000 ML IV SCH ×2 (01:38→04:25)
[2017-06-07] MEDS: LACTATED RINGERS 1,000 ML IV SCH (02:48)
[2017-06-07] MEDS: HYDROcodone/APAP 7.5-325MG 1 EACH TAB PO PRN ×4 (03:19→20:22)
[2017-06-07] MEDS: HYOSCYAMINE ORAL DROPS 1.875 MG/15 ML BOTTLE PO SCH ×3 (05:16→18:16)
[2017-06-07] MEDS: SIMETHICONE 40 MG/0.6 ML DROPS 2,000 MG/30 ML BOTTLE PO SCH ×3 (05:16→18:17)
[2017-06-07] MEDS: INSULIN ASPART 100 UNIT/ML 1 ML 10 ML VIAL SQ SCH ×3 (05:17→18:14)
[2017-06-07 05:35] LABS: Glucose,Whole Blood 107 mg/dL (75-99)
[2017-06-07 07:20] LABS: Glucose,Whole Blood 105 mg/dL (75-99)
[2017-06-07] MEDS: ALBUTEROL NEBULIZED 2.5 MG/3 ML INHALATION SCH ×4 (07:38→19:34)
[2017-06-07] MEDS: ONDANSETRON 4 MG/2 ML VIAL IVP PRN ×3 (07:57→20:22)
[2017-06-07] MEDS: SODIUM FERRIC GLUCONAT-SUCROSE 125 MG in SODIUM CHLORIDE 0.9% 100 ML IVPB SCH (09:00)
[2017-06-07 09:24] LABS: Basophils % (A) 1 %; Eosinophils # (A) 0.1 k/uL (0-0.7); Eosinophils % (A) 1 %; HGB 9.8 gm/dL (11.4-16.0); Hypochromasia Marked; Lymphocytes # (A) 1.3 k/uL (1.0-4.8); Lymphocytes % (A) 17 %; MCH 25.3 pg (25.0-35.0); MCHC 29.6 g/dL (31.0-37.0); MCV 85.5 fL (80.0-100.0); Monocytes # (A) 0.3 k/uL (0-1.0); Monocytes % (A) 4 %; Neutrophils # (A) 6.1 k/uL (1.3-7.7); Neutrophils % (A) 77 %; Platelet Count 259 k/uL (150-450); RBC 3.85 m/uL (3.80-5.40); RDW 15.1 % (11.5-15.5); WBC 7.9 k/uL (3.8-10.6)
[2017-06-07 09:35] LABS: Calcium 9.2 mg/dL (8.4-10.2); Magnesium 1.7 mg/dL (1.6-2.3); Phosphorus 2.1 mg/dL (2.5-4.5)
[2017-06-07 09:41] LABS: Potassium 4.9 mmol/L (3.5-5.1)
[2017-06-07] MEDS: ceFAZolin IN SWFI 2 GM/20 ML SYRINGE IVP SCH ×2 (09:43→18:14)
[2017-06-07] MEDS: PANTOPRAZOLE 40 MG/10 ML VIAL IV SCH (09:45)
[2017-06-07] MEDS: ENOXAPARIN 40 MG/0.4 ML SYRINGE SQ SCH (09:45)
[2017-06-07] MEDS: LISINOPRIL 10 MG TAB PO SCH (09:46)
--- NOTE | 2017-06-07 10:32 | P.PN ---
Subjective Progress Note Date: 06/07/17 Principal diagnosis: Hypoxemia, obstructive sleep apnea This is a 66-year-old female status post op day #1, Aly-en-Y gastric bypass. The patient has a history of underlying sleep apnea syndrome recently diagnosed about a month ago. She went to the [facility] sleep center and saw one of the doctors there. She's been on CPAP for about a month and this really helped quite significantly. She has had a follow-up CPAP titration study. In addition , she has morbid obesity diabetes osteoarthritis. She also suffers from gastroesophageal reflux disease hypertension and vitamin D deficiency and glaucoma. Her surgical history includes previous right hip surgery and bilateral cataract extraction. Since being on CPAP, her saturations have improved. She denies any coughing or wheezing. States that she's taking deeper breaths. Denies any fever or chills. The patient is on her CPAP when I enter the room today. Her saturations are 98%. Even off the CPAP today while in the room, her saturations are 93%. I suspect some of her difficulty relates to basilar atelectasis from the obesity and not taking deep breaths. In addition, she likely has some pickwickian syndrome or obesity/hypoventilation syndrome. Finally, she may still be having some of the effects of anesthesia or and/or sedation from her recent surgery On 06/07/2017 patient seen again in follow-up. She is sitting up in the chair, in no acute distress. Patient has a occasional congested nonproductive cough. Lung sounds are positive for coarse rales over bilateral lower bases. Her FiO2 is at 5 L with O2 sat at 95%. She did wear her CPAP last night at her home settings. She remains afebrile, she is slightly tachycardic with a heart rate of 105 BPM. Today's lab work shows CBC of 7.9, hemoglobin is 9.8, sodium is 140 , potassium is 4.9, chloride is 107, carbon dioxide is 20, BUN is 19, creatinine is 1.15. Patient continues on IV Kefzol, and albuterol nebulized treatments. She is tolerating bariatric clear liquid diet. Today we'll try to encourage the patient to use her incentive spirometry, today she is able to achieve 750 on it. Continue increasing activity, increase ambulation. And wean FiO2. Objective - Vital Signs Vital signs: Vital Signs Temp 99.4 F 02/14/18 02:10 Pulse 105 H 06/07/17 07:48 Resp 18 06/07/17 07:38 BP 128/64 06/07/17 02:10 Pulse Ox 95 06/07/17 07:38 Intake & Output 06/06/17 06/07/17 06/07/17 18:59 06:59 18:59 Intake Total 1050 Balance 1050 Intake: Intake, IV Titration 1000 Amount 0.9% NaCl with KCl 20 Meq 1000 /l 1,000 ml @ 100 mls/hr IV .Q10H [facility] Rx#: [id number] Oral 50 Other: Voiding Method Toilet Bedside Commode # Voids 1 1 - Exam GENERAL EXAM: Alert, pleasant, 66-year-old obese white female, comfortable in no apparent distress. HEAD: Normocephalic/atraumatic. EYES: Normal reaction of pupils, equal size. Conjunctiva pink, sclera white. NOSE: Clear with pink turbinates. THROAT: No erythema or exudates. NECK: No masses, no JVD, no thyroid enlargement, no adenopathy. CHEST: No chest wall deformity. Symmetrical expansion. LUNGS: Equal air entry bilaterally, coarse rales over bilateral lower bases posteriorly. Patient has an occasional congested nonproductive cough. CVS: Regular rate and rhythm, normal S1 and S2, no gallops, no murmurs, no rubs ABDOMEN: Soft, nontender. No hepatosplenomegaly, normal bowel sounds, no guarding or rigidity. EXTREMITIES: No clubbing, no edema, no cyanosis, 2+ pulses and upper and lower extremities. MUSCULOSKELETAL: Muscle strength and tone normal. SPINE: No scoliosis or deformity SKIN: No rashes CENTRAL NERVOUS SYSTEM: Alert and oriented -3. No focal deficits, tone is normal in all 4 extremities. PSYCHIATRIC: Alert and oriented -3. Appropriate affect. Intact judgment and insight. - Labs CBC & Chem 7: 06/07/17 09:02 06/07/17 09:02 Labs: Abnormal Lab Results - Last 24 Hours (Table) 06/06/17 06/06/17 06/06/17 Range/Units 07:17 11:33 17:06 Hgb (11.4-16.0) gm/dL Hct (34.0-46.0) % MCHC (31.0-37.0) g/dL Carbon Dioxide (22-30) mmol/L BUN (7-17) mg/dL Creatinine (0.52-1.04) mg/dL Glucose (74-99) mg/dL POC Glucose (mg/dL) 180 H 180 H (75-99) mg/dL Phosphorus (2.5-4.5) mg/dL Iron 6 L (50-170) ug/dL Iron Saturation 1.86 L (12.00-45.00) 06/06/17 06/06/17 06/07/17 Range/Units 20:25 23:16 05:12 Hgb (11.4-16.0) gm/dL Hct (34.0-46.0) % MCHC (31.0-37.0) g/dL Carbon Dioxide (22-30) mmol/L BUN (7-17) mg/dL Creatinine (0.52-1.04) mg/dL Glucose (74-99) mg/dL POC Glucose (mg/dL) 177 H 181 H 107 H (75-99) mg/dL Phosphorus (2.5-4.5) mg/dL Iron (50-170) ug/dL Iron Saturation (12.00-45.00) 06/07/17 06/07/17 06/07/17 Range/Units 07:18 09:02 09:02 Hgb 9.8 L (11.4-16.0) gm/dL Hct 33.0 L (34.0-46.0) % MCHC 29.6 L (31.0-37.0) g/dL Carbon Dioxide 20 L (22-30) mmol/L BUN 19 H (7-17) mg/dL Creatinine 1.15 H (0.52-1.04) mg/dL Glucose 157 H (74-99) mg/dL POC Glucose (mg/dL) 105 H (75-99) mg/dL Phosphorus 2.1 L (2.5-4.5) mg/dL Iron (50-170) ug/dL Iron Saturation (12.00-45.00) Assessment and Plan Plan: Assessment: Postoperative hypoxemia/low saturations, likely multifactorial. In part, this is related to obstructive sleep apnea syndrome, possible pickwickian syndrome, basilar atelectasis because the patient is not taking deep breaths, and prolonged sedative/anesthetic effect. Postop day #1 status post Aly-en-Y gastric bypass History of morbid obesity History of GERD History of recently diagnosed sleep apnea syndrome History of diabetes mellitus History of hypertension Glaucoma Vitamin D deficiency Plan: We will continue encouraging incentive spirometry use, increase ambulation. Weaning FiO2, continue albuterol nebulized treatments. CPAP device at bedtime at home settings. I performed a history & physical examination of the patient and discussed their management with my nurse practitioner, Jimena Saravia. I reviewed the nurse practitioner's note and agree with the documented findings and plan of care. Lung sounds are positive for bilateral lower lobe crackles. The findings and the impression was discussed with the patient. I attest to the documentation by the nurse practitioner. Time with Patient: Less than 30
[2017-06-07] MEDS ORDERED: SODIUM CHLORIDE 0.9% 500 ML IV ONE (10:39)
[2017-06-07 11:45] LABS: Glucose,Whole Blood 168 mg/dL (75-99)
[2017-06-07] MEDS: MAGNESIUM SULFATE-D5W PMX 1 GM in DEXTROSE/WATER 1 100ML.BAG IVPB SCH ×2 (12:31→14:21)
--- NOTE | 2017-06-07 15:26 | CDI ---
Last Revision, March 2017 Documentation Clarification Form Date: 06/07/2017 3:10:00 PM From: Gauri Jones RN, CCDS Admit Date: 06/05/2017 5:46:00 AM Patient Name: Deann Ruiz Visit Number: [id number] ATTENTION: The Clinical Documentation Specialists (CDI) and [facility] Coding Staff appreciate your assistance in clarifying documentation. Please respond to the clarification below the line at the bottom and electronically sign. The CDI & [facility] Coding staff will review the response and follow-up if needed. Please note: Queries are made part of the Legal Health Record. If you have any questions, please contact the author of this message via ITS. Dr. Koko Umana The patient presented with the following respiratory symptoms post-operative hypoxemia is documented and requires further specificity. History/Risk Factors: WAN with home CPAP, MO, HTN, Tobacco use: none Home oxygen: none Clinical Indicators: 04/05 Pulmonary Consult: she likely has some pickwickian syndrome or obesity/ hypoventilation syndrome. Finally, she may still be having some of the effects of anesthesia or and/or sedation from her recent surgery. Postoperative hypoxemia/low saturations, likely multifactorial. In part, this is related to obstructive sleep apnea syndrome, possible pickwickian syndrome, basilar atelectasis because the patient is not taking deep breaths, and prolonged sedative/anesthetic effect." Vital signs: temp 98, hr 88, RR 18, B/P 132/59, spo2 92% 15L simple mask Pulse oximetry: 92% on 100% FIO2 06/06 Pulmonary Lung/Breathing assessment:"Lungs reveal clear breath sounds. Her sounds are equal bilaterally, Patient does not really take deep breaths." Treatment: Breathing TX: none ordered Pulse ox: per floor protocol CPAP per home unit setting with 5L trained in O2: 15L simple mask decreased down to 5L nasal cannula In your professional opinion, can you please clarify if these findings signify one of the following conditions? Acuity: Acute Chronic Acute on Chronic Specificity: Respiratory Failure, further specify (if known): With hypercapnia? With hypoxia? Respiratory Distress Respiratory Insufficiency Other Diagnosis, please specify Unable to determine Please continue to document in your progress notes and discharge summary in order to capture severity of illness and risk of mortality. Include clinical findings that support your diagnosis. MTDD
[2017-06-07] MEDS: SODIUM PHOSPHATE 10 MMOL in SODIUM CHLORIDE 0.9% 250 ML IVPB SCH ×3 (16:46→23:18)
[2017-06-07 17:46] LABS: Glucose,Whole Blood 203 mg/dL (75-99)
[2017-06-07] MEDS: INSULIN DETEMIR 100 UNIT/ML 10 ML VIAL SQ SCH (20:23)
[2017-06-08 00:57] LABS: Glucose,Whole Blood 161 mg/dL (75-99)
[2017-06-08] MEDS: INSULIN ASPART 100 UNIT/ML 1 ML 10 ML VIAL SQ SCH ×3 (01:14→13:11)
[2017-06-08] MEDS: HYOSCYAMINE ORAL DROPS 1.875 MG/15 ML BOTTLE PO SCH ×3 (01:14→13:10)
[2017-06-08] MEDS: SIMETHICONE 40 MG/0.6 ML DROPS 2,000 MG/30 ML BOTTLE PO SCH ×3 (01:14→13:10)
[2017-06-08] MEDS: ceFAZolin IN SWFI 2 GM/20 ML SYRINGE IVP SCH ×2 (01:15→07:30)
[2017-06-08] MEDS: 0.9% NACL WITH KCL 20 MEQ/L 1,000 ML IV SCH ×4 (01:31→07:29)
[2017-06-08] MEDS: HYDROcodone/APAP 7.5-325MG 1 EACH TAB PO PRN ×3 (01:42→13:40)
[2017-06-08] MEDS: LACTATED RINGERS 1,000 ML IV SCH (05:36)
[2017-06-08 05:48] LABS: Glucose,Whole Blood 151 mg/dL (75-99)
[2017-06-08] MEDS ORDERED: INSULIN DETEMIR 100 UNIT/ML 10 ML VIAL SQ SCH (05:49)
[2017-06-08] MEDS: ONDANSETRON 4 MG/2 ML VIAL IVP PRN (05:57)
[2017-06-08 07:17] VITALS: RESP 18
[2017-06-08 07:25] LABS: Basophils % (A) 1 %; Eosinophils # (A) 0.1 k/uL (0-0.7); Eosinophils % (A) 2 %; HCT 29.9 % (34.0-46.0); HGB 8.8 gm/dL (11.4-16.0); Hypochromasia Marked; Lymphocytes # (A) 1.1 k/uL (1.0-4.8); Lymphocytes % (A) 20 %; MCH 24.9 pg (25.0-35.0); MCHC 29.4 g/dL (31.0-37.0); MCV 84.7 fL (80.0-100.0); Mean Platelet Volume 8.2; Monocytes # (A) 0.2 k/uL (0-1.0); Monocytes % (A) 5 %; Neutrophils # (A) 3.8 k/uL (1.3-7.7); Neutrophils % (A) 72 %; Platelet Count 237 k/uL (150-450); RBC 3.53 m/uL (3.80-5.40); RDW 14.9 % (11.5-15.5); WBC 5.2 k/uL (3.8-10.6)
[2017-06-08] MEDS: ENOXAPARIN 40 MG/0.4 ML SYRINGE SQ SCH (07:28)
[2017-06-08] MEDS: PANTOPRAZOLE 40 MG/10 ML VIAL IV SCH (07:29)
[2017-06-08] MEDS: LISINOPRIL 10 MG TAB PO SCH (07:29)
[2017-06-08 07:38] LABS: Calcium 8.9 mg/dL (8.4-10.2); Magnesium 1.9 mg/dL (1.6-2.3); Phosphorus 2.7 mg/dL (2.5-4.5); Potassium 4.9 mmol/L (3.5-5.1)
--- NOTE | 2017-06-08 07:54 | P.PN ---
Subjective Progress Note Date: 06/07/17 CHIEF COMPLAINT: s/p gastric bypass. HISTORY OF PRESENT ILLNESS: Deann Wild is a 66-year-old female s/p gastric bypass. She reports doing much better today. Breathing has improved. Family is at bedside. She is ambulating. Pain is better controlled. No reports of fevers or chills. No reports of recent nausea or vomiting. PHYSICAL EXAM: VITAL SIGNS: Reviewed. GENERAL: Well-developed female in no acute distress. HEENT: No scleral icterus. Extraocular movements grossly intact. Hears conversational speech. No nasal drainage. NECK: Supple without lymphadenopathy. CHEST: Nonlabored respirations with equal bilateral excursions. CARDIOVASCULAR: Regular rate. Distal 2+ pulses. ABDOMEN: Obese, soft, no peritonitis. No signs of infection or cellulitis. MUSCULOSKELETAL: No clubbing, cyanosis, or edema. NEURO: No focal or lateralizing signs. PSYCH: Appropriate affect. Alert and oriented to person, place and time. SKIN: Good skin turgor. Well perfused. ASSESSMENT: 1. Morbid obesity. 2. Body mass index of 50.4. 3. Gastroesophageal reflux disease. 4. Obstructive sleep apnea. 5. Diabetes type 2 insulin-dependent. 6. Hypertensive heart disease. 7. Vitamin D deficiency. 8. Glaucoma. 9. Osteoarthritis involving the bilateral hips. 10. Osteoarthritis of the bilateral knees. 11. Dietary surveillance and counseling. 12. Family history of stomach cancer. 13. Status post gastric bypass. PLAN: 1. Discharge home tomorrow. 2. Repeat chemistries in the morning. 3. Discharge instruction reviewed in detail. Objective - Vital Signs Vital signs: Vital Signs Temp 98.2 F 06/07/17 20:20 Pulse 99 06/07/17 20:20 Resp 16 06/07/17 20:20 BP 131/76 06/07/17 20:20 Pulse Ox 94 L 06/07/17 20:20 Intake & Output 06/07/17 06/07/17 06/08/17 06:59 18:59 06:59 Intake Total 1050 2400 Balance 1050 2400 Weight 121.109 kg Intake: Intake, IV Titration 1000 1200 Amount 0.9% NaCl with KCl 20 Meq 1000 400 /l 1,000 ml @ 100 mls/hr IV .Q10H MARY JO Rx#: [id number] Magnesium Sulfate-D5w Pmx 200 1 gm In Dextrose/Water 1 100ml.bag @ 100 mls/hr IVPB Q1H MARY JO Rx#: [id number] Sodium Chloride 0.9% 500 500 ml @ 999 mls/hr IV .Q31M ONE Rx#:[id number] Sodium Ferric Gluconat- 100 Sucrose 125 mg In Sodium Chloride 0.9% 100 ml @ 100 mls/hr IVPB DAILY MARY JO Rx#:[id number] Oral 50 1200 Other: # Voids 1 - Labs CBC & Chem 7: 06/08/17 06:56 06/08/17 06:56 Labs: Abnormal Lab Results - Last 24 Hours (Table) 06/06/17 06/06/17 06/07/17 Range/Units 20:25 23:16 05:12 Hgb (11.4-16.0) gm/dL Hct (34.0-46.0) % MCHC (31.0-37.0) g/dL Carbon Dioxide (22-30) mmol/L BUN (7-17) mg/dL Creatinine (0.52-1.04) mg/dL Glucose (74-99) mg/dL POC Glucose (mg/dL) 177 H 181 H 107 H (75-99) mg/dL Phosphorus (2.5-4.5) mg/dL 06/07/17 06/07/17 06/07/17 Range/Units 07:18 09:02 09:02 Hgb 9.8 L (11.4-16.0) gm/dL Hct 33.0 L (34.0-46.0) % MCHC 29.6 L (31.0-37.0) g/dL Carbon Dioxide 20 L (22-30) mmol/L BUN 19 H (7-17) mg/dL Creatinine 1.15 H (0.52-1.04) mg/dL Glucose 157 H (74-99) mg/dL POC Glucose (mg/dL) 105 H (75-99) mg/dL Phosphorus 2.1 L (2.5-4.5) mg/dL 06/07/17 06/07/17 Range/Units 11:25 17:44 Hgb (11.4-16.0) gm/dL Hct (34.0-46.0) % MCHC (31.0-37.0) g/dL Carbon Dioxide (22-30) mmol/L BUN (7-17) mg/dL Creatinine (0.52-1.04) mg/dL Glucose (74-99) mg/dL POC Glucose (mg/dL) 168 H 203 H (75-99) mg/dL Phosphorus (2.5-4.5) mg/dL Assessment and Plan (1) Morbid obesity Current Visit: Yes Status: Acute Code(s): E66.01 - MORBID (SEVERE) OBESITY DUE TO EXCESS CALORIES SNOMED Code(s): 655056838
[2017-06-08] MEDS: ALBUTEROL NEBULIZED 2.5 MG/3 ML INHALATION SCH ×2 (09:03→12:37)
[2017-06-08] MEDS: SODIUM FERRIC GLUCONAT-SUCROSE 125 MG in SODIUM CHLORIDE 0.9% 100 ML IVPB SCH (09:38)
--- NOTE | 2017-06-08 10:28 | P.PN ---
Subjective Progress Note Date: 06/08/17 Principal diagnosis: Hypoxemia, obstructive sleep apnea This is a 66-year-old female status post op day #1, Aly-en-Y gastric bypass. The patient has a history of underlying sleep apnea syndrome recently diagnosed about a month ago. She [place] [facility] and saw one of the doctors there. She's been on CPAP for about a month and this really helped quite significantly. She has had a follow-up CPAP titration study. In addition , she has morbid obesity diabetes osteoarthritis. She also suffers from gastroesophageal reflux disease hypertension and vitamin D deficiency and glaucoma. Her surgical history includes previous right hip surgery and bilateral cataract extraction. Since being on CPAP, her saturations have improved. She denies any coughing or wheezing. States that she's taking deeper breaths. Denies any fever or chills. The patient is on her CPAP when I enter the room today. Her saturations are 98%. Even off the CPAP today while in the room, her saturations are 93%. I suspect some of her difficulty relates to basilar atelectasis from the obesity and not taking deep breaths. In addition, she likely has some pickwickian syndrome or obesity/hypoventilation syndrome. Finally, she may still be having some of the effects of anesthesia or and/or sedation from her recent surgery On 06/07/2017 patient seen again in follow-up. She is sitting up in the chair, in no acute distress. Patient has a occasional congested nonproductive cough. Lung sounds are positive for coarse rales over bilateral lower bases. Her FiO2 is at 5 L with O2 sat at 95%. She did wear her CPAP last night at her home settings. She remains afebrile, she is slightly tachycardic with a heart rate of 105 BPM. Today's lab work shows CBC of 7.9, hemoglobin is 9.8, sodium is 140 , potassium is 4.9, chloride is 107, carbon dioxide is 20, BUN is 19, creatinine is 1.15. Patient continues on IV Kefzol, and albuterol nebulized treatments. She is tolerating bariatric clear liquid diet. Today we'll try to encourage the patient to use her incentive spirometry, today she is able to achieve 750 on it. Continue increasing activity, increase ambulation. And wean FiO2. On 06/08/2017 patient is seen again in follow-up. She is able to achieve 1250 on her incentive spirometry today, she has ambulated 3 times in the hallway, tolerated it well. She has an effective cough, which is nonproductive. Occasional. Denies any acute shortness of breath, she remains on 5 L per nasal cannula, at O2 sat at 93%. We will try to wean this further. FiO2 was brought down to 4 L. lung sounds are positive for some scattered crackles over bilateral bases, but it is improved from yesterday's exam, her crackles are not as coarse. Her pain is reasonably controlled. She started to pass some flatus. Surgery is anticipating discharge home today. From pulmonary standpoint patient is stable for discharge home, home oxygen is being arranged, we will try to wean the FiO2 further. Objective - Vital Signs Vital signs: Vital Signs Temp 98.7 F 06/08/17 07:16 Pulse 92 06/08/17 09:19 Resp 18 06/08/17 07:17 BP 148/71 06/08/17 07:16 Pulse Ox 93 L 06/08/17 09:07 Intake & Output 06/07/17 06/08/17 06/08/17 18:59 06:59 18:59 Intake Total 2400 2090 80 Balance 2400 2090 80 Weight 121.109 kg Intake: Intake, IV Titration 1200 1850 Amount 0.9% NaCl with KCl 20 Meq 400 100 /l 1,000 ml @ 100 mls/hr IV .Q10H MARY JO Rx#: [id number] Magnesium Sulfate-D5w Pmx 200 1 gm In Dextrose/Water 1 100ml.bag @ 100 mls/hr IVPB Q1H MARY JO Rx#: [id number] Sodium Chloride 0.9% 185 153 7091 ml @ 999 mls/hr IV .Q31M ONE Rx#:[id number] Sodium Ferric Gluconat- 100 Sucrose 125 mg In Sodium Chloride 0.9% 100 ml @ 100 mls/hr IVPB DAILY MARY JO Rx#:[id number] Sodium Phosphate 10 mmol 750 In Sodium Chloride 0.9% 250 ml @ 125 mls/hr IVPB Q2H MARY JO Rx#:[id number] Oral 1200 240 80 Other: Voiding Method Toilet Toilet # Voids 3 - Exam GENERAL EXAM: Alert, pleasant, 66-year-old obese white female, comfortable in no apparent distress. HEAD: Normocephalic/atraumatic. EYES: Normal reaction of pupils, equal size. Conjunctiva pink, sclera white. NOSE: Clear with pink turbinates. THROAT: No erythema or exudates. NECK: No masses, no JVD, no thyroid enlargement, no adenopathy. CHEST: No chest wall deformity. Symmetrical expansion. LUNGS: Equal air entry bilaterally, diminished, rales at posterior bases. Patient has an occasional congested nonproductive cough. CVS: Regular rate and rhythm, normal S1 and S2, no gallops, no murmurs, no rubs ABDOMEN: Soft, nontender. No hepatosplenomegaly, normal bowel sounds, no guarding or rigidity. EXTREMITIES: No clubbing, no edema, no cyanosis, 2+ pulses and upper and lower extremities. MUSCULOSKELETAL: Muscle strength and tone normal. SPINE: No scoliosis or deformity SKIN: No rashes CENTRAL NERVOUS SYSTEM: Alert and oriented -3. No focal deficits, tone is normal in all 4 extremities. PSYCHIATRIC: Alert and oriented -3. Appropriate affect. Intact judgment and insight. - Labs CBC & Chem 7: 06/08/17 06:56 06/08/17 06:56 Labs: Abnormal Lab Results - Last 24 Hours (Table) 06/07/17 06/07/17 06/08/17 Range/Units 11:25 17:44 00:54 RBC (3.80-5.40) m/uL Hgb (11.4-16.0) gm/dL Hct (34.0-46.0) % MCH (25.0-35.0) pg MCHC (31.0-37.0) g/dL Creatinine (0.52-1.04) mg/dL Glucose (74-99) mg/dL POC Glucose (mg/dL) 168 H 203 H 161 H (75-99) mg/dL 06/08/17 06/08/17 06/08/17 Range/Units 05:25 06:56 06:56 RBC 3.53 L (3.80-5.40) m/uL Hgb 8.8 L (11.4-16.0) gm/dL Hct 29.9 L (34.0-46.0) % MCH 24.9 L (25.0-35.0) pg MCHC 29.4 L (31.0-37.0) g/dL Creatinine 1.14 H (0.52-1.04) mg/dL Glucose 137 H (74-99) mg/dL POC Glucose (mg/dL) 151 H (75-99) mg/dL Assessment and Plan Plan: Assessment: Acute hypoxic respiratory failure likely multifactorial. In part, this is related to obstructive sleep apnea syndrome, possible pickwickian syndrome, basilar atelectasis because the patient is not taking deep breaths, and prolonged sedative/anesthetic effect. Postop day #1 status post Aly-en-Y gastric bypass History of morbid obesity History of GERD History of recently diagnosed sleep apnea syndrome History of diabetes mellitus History of hypertension Glaucoma Vitamin D deficiency Plan: Continue weaning FiO2, patient may need home oxygen. Continue aggressive pulmonary toileting, incentive spirometry, ambulation. From pulmonary standpoint patient is stable for discharge home today. She will need follow-up with Dr. Umana in the office in one week I performed a history & physical examination of the patient and discussed their management with my nurse practitioner, Jimena Saravia. I reviewed the nurse practitioner's note and agree with the documented findings and plan of care. Lung sounds are positive for bilateral lower lobe crackles. The findings and the impression was discussed with the patient. I attest to the documentation by the nurse practitioner. Time with Patient: Less than 30
[2017-06-08 11:22] LABS: Glucose,Whole Blood 138 mg/dL (75-99)
[2017-06-08 12:03] LABS: HCT 29.4 % (34.0-46.0); HGB 8.9 gm/dL (11.4-16.0); Hypochromasia Marked; MCH 25.5 pg (25.0-35.0); MCHC 30.2 g/dL (31.0-37.0); MCV 84.3 fL (80.0-100.0); Mean Platelet Volume 8.9; Platelet Count 232 k/uL (150-450); RBC 3.49 m/uL (3.80-5.40); RDW 14.9 % (11.5-15.5); WBC 5.6 k/uL (3.8-10.6)
--- NOTE | 2017-06-08 12:40 | P.PN ---
Subjective Progress Note Date: 06/08/17 66-year-old female who presented on an elective admission to undergo piter en y gasric bypass for morbid obesity. Patient has a history of underlying sleep apnea syndrome recently diagnosed month prior. Patient had a sleep study done. Placed on CPAP for about a month. Postop patient did ambulate in the hallway was able to use the incentive spirometer could achieve 1200. There was no recent nausea vomiting. Surgical sites benign. No redness to the site. The nasal cannula was able to be titrated down to 3 L. On 5 L the sats are 93% . The pulse ox sat did go down to the 70s on room air with activity. Patient stated was passing some gas no stool tolerating bariatric clear liquid diet the hemoglobin this morning was 8.8 the repeat hemoglobin at noon 8.9 Objective - Vital Signs Vital signs: Vital Signs Temp 98.7 F 06/08/17 07:16 Pulse 92 06/08/17 09:19 Resp 18 06/08/17 07:17 BP 148/71 06/08/17 07:16 Pulse Ox 93 L 06/08/17 09:07 Intake & Output 06/07/17 06/08/17 06/08/17 18:59 06:59 18:59 Intake Total 2400 2090 80 Balance 2400 2090 80 Weight 121.109 kg Intake: Intake, IV Titration 1200 1850 Amount 0.9% NaCl with KCl 20 Meq 400 100 /l 1,000 ml @ 100 mls/hr IV .Q10H MARY JO Rx#: [id number] Magnesium Sulfate-D5w Pmx 200 1 gm In Dextrose/Water 1 100ml.bag @ 100 mls/hr IVPB Q1H MARY JO Rx#: [id number] Sodium Chloride 0.9% 894 690 3621 ml @ 999 mls/hr IV .Q31M ONE Rx#:[id number] Sodium Ferric Gluconat- 100 Sucrose 125 mg In Sodium Chloride 0.9% 100 ml @ 100 mls/hr IVPB DAILY MARY JO Rx#:[id number] Sodium Phosphate 10 mmol 750 In Sodium Chloride 0.9% 250 ml @ 125 mls/hr IVPB Q2H MARY JO Rx#:[id number] Oral 1200 240 80 Other: Voiding Method Toilet Toilet # Voids 3 1 - Exam Physical exam 66 year old female obese sitting up in bed Lungs bilateral adequate air movement diminished posteriorly. Heart S1-S2 audible regular Abdomen obese soft surgical tenderness appropriate passing gas no stool surgical sites dry nondistended extremities no pedal edema bilaterally - Labs CBC & Chem 7: 06/08/17 11:48 06/08/17 06:56 Labs: Abnormal Lab Results - Last 24 Hours (Table) 06/07/17 06/08/17 06/08/17 Range/Units 17:44 00:54 05:25 RBC (3.80-5.40) m/uL Hgb (11.4-16.0) gm/dL Hct (34.0-46.0) % MCH (25.0-35.0) pg MCHC (31.0-37.0) g/dL Creatinine (0.52-1.04) mg/dL Glucose (74-99) mg/dL POC Glucose (mg/dL) 203 H 161 H 151 H (75-99) mg/dL 06/08/17 06/08/17 06/08/17 Range/Units 06:56 06:56 11:18 RBC 3.53 L (3.80-5.40) m/uL Hgb 8.8 L (11.4-16.0) gm/dL Hct 29.9 L (34.0-46.0) % MCH 24.9 L (25.0-35.0) pg MCHC 29.4 L (31.0-37.0) g/dL Creatinine 1.14 H (0.52-1.04) mg/dL Glucose 137 H (74-99) mg/dL POC Glucose (mg/dL) 138 H (75-99) mg/dL 06/08/17 Range/Units 11:48 RBC 3.49 L (3.80-5.40) m/uL Hgb 8.9 L (11.4-16.0) gm/dL Hct 29.4 L (34.0-46.0) % MCH (25.0-35.0) pg MCHC 30.2 L (31.0-37.0) g/dL Creatinine (0.52-1.04) mg/dL Glucose (74-99) mg/dL POC Glucose (mg/dL) (75-99) mg/dL Assessment and Plan Assessment: Impression Acute hypoxic respiratory failure multifactorial suspect due to pulmonary hypertension due to obstructive sleep apnea Morbid obesity BMI 50.4 Vitamin D deficiency Recently diagnosed sleep apnea syndrome History of esophageal reflex Possible pickwickian syndrome related to morbid obesity Osteoarthritis involving the bilateral hips and knees Type 2 diabetes insulin-dependent Hypertensive with hypertensive heart disease Glaucoma Plan Prepped for probable discharge today Follow-up with outpatient setting Continue bariatric care as ordered Continue with the CPAP therapy at home for the obstructive sleep apnea The above impression and plan of care have been discussed and directed by signing physician. Dilia Tran nurse practitioner acting as scribe for signing physician.
--- NOTE | 2017-06-08 12:55 | P.DS ---
<Dilia Tran - Last Filed: 06/08/17 12:40> Providers Date of admission: 06/05/17 05:46 Expected date of discharge: 06/08/17 Attending physician: Ximena Ferrera Consults: 06/06/17 08:17 Consult Physician Routine Consulting Provider: Nai Stephen Consult Reason/Comments: severe apnea Do you want consulting provider notified?: Yes Primary care physician: Kushal Brambila Hospital Course: 66-year-old female who presented on an elective admission to undergo piter en y gasric bypass for morbid obesity done on June 05 for morbid obesity BMI 50.4. Patient has multiple comorbidities including obstructive sleep apnea newly diagnosed with CPAP therapy 1 month prior, type 2 diabetes, osteoarthritis of the hips and knees. With symptoms of obstructive sleep apnea. Patient elected a surgical approach for treatment of morbid obesity. Postop patient was followed by pulmonary service. Was instructed to continue CPAP therapy at night and at rest as ordered. Patient was noted that the oxygen nasal cannula could be titrated down to 3 L on room air the sats were in the 70s. Nasal cannula titrated to 3 keeping the sats 9093%. On the day of discharge patient was passing gas no stool tolerating bariatric clear liquid diet. Hemoglobin was repeated and was 8.9. Patient was followed by the bariatric service surgical team. Patient had ambulated in the hallway on the day of discharge several times. Use the incentive spirometer achieving 1200. Pulmonary indicated the patient was appropriate to be discharged Impression discharge diagnosis Acute hypoxic respiratory failure multifactorial suspect due to pulmonary hypertension due to obstructive sleep apnea Morbid obesity BMI 50.4 Vitamin D deficiency Recently diagnosed sleep apnea syndrome History of esophageal reflex Possible pickwickian syndrome related to morbid obesity Osteoarthritis involving the bilateral hips and knees Type 2 diabetes insulin-dependent Hypertensive with hypertensive heart disease Glaucoma The above impression and plan of care have been discussed and directed by signing physician. Dilia Tran nurse practitioner acting as scribe for signing physician. Plan - Discharge Summary Discharge Rx Participant: Yes New Discharge Prescriptions: New HYDROcodone/APAP 7.5-325MG [[place] 7.5-325] 1 each PO Q6H PRN #30 tab PRN Reason: Pain Bisacodyl [Dulcolax] 5 mg PO DAILY PRN #10 tablet. PRN Reason: Constipation Ondansetron Odt [Zofran Odt] 4 mg PO Q8HR PRN #9 tab PRN Reason: Nausea Simethicone 40 mg/0.6 ml Drops [Mylicon Drops] 40 mg PO PCHS PRN #30 ml PRN Reason: Gas Continue Insulin Glargine [Lantus] 15 units SQ HS Lisinopril [Zestril] 10 mg PO QAM Omeprazole 40 mg PO QAM Discontinued metFORMIN HCL 1,000 tab PO BID Aspirin 325 mg PO DAILY Multivitamin [Multivitamins Adult Gummies] 2 tab PO DAILY Glimepiride [Amaryl] 4 mg PO BID Vitamin E Acetate [Vitamin E] 200 unit PO DAILY Krill/[place]-3/Dha/Epa/Lipids [Krill Oil 350 mg Softgel] 1 cap PO DAILY Cholecalciferol [Vitamin D3] 1,000 unit PO DAILY Discharge Medication List Insulin Glargine [Lantus] 15 units SQ HS 11/30/16 [History] Lisinopril [Zestril] 10 mg PO QAM 01/02/17 [History] Omeprazole 40 mg PO QAM 05/25/17 [History] Bisacodyl [Dulcolax] 5 mg PO DAILY PRN #10 tablet. 06/07/17 [Rx] HYDROcodone/APAP 7.5-325MG [[place] 7.5-325] 1 each PO Q6H PRN #30 tab 06/07/17 [ Rx] Ondansetron Odt [Zofran Odt] 4 mg PO Q8HR PRN #9 tab 06/07/17 [Rx] Simethicone 40 mg/0.6 ml Drops [Mylicon Drops] 40 mg PO PCHS PRN #30 ml [Rx] Follow up Appointment(s)/Referral(s): Koko Umana DO [Doctor of Osteopathic Medicine] - 06/26/17 1:00 pm [facility], [NON-STAFF] - Bariatric Center,. [NON-STAFF] - 06/12/17 12:00 pm Kushal Brambila MD [Primary Care Provider] - 06/19/17 9:30 am Patient Instructions/Handouts: Nutrition after Bariatric Surgery (GEN), Piter- en-Y Gastric Bypass (DC) Activity/Diet/Wound Care/Special Instructions: No bath tub soaks. May shower. No lifting over 4 pounds in 4 weeks. DO NOT TAKE INSULIN OR BLOOD SUGAR MEDICATIONS FOR BLOOD SUGAR UNDER 150. Discharge Disposition: HOME WITH HOME HEALTH SERVICES <Ximena Ferrera - Last Filed: 06/13/17 04:37> - Discharge Diagnosis(es) (1) Morbid obesity Status: Acute
[2017-06-08 14:17] VITALS: BP 152/73; PULSE 95; TEMP 98.4
--- NOTE | 2017-06-22 20:59 | P.OP ---
Date of Procedure: 06/05/17 Description of Procedure: Date of Procedure: 06/05/17 DESCRIPTION OF PROCEDURE(S): SURGEON: LOUIS UP MD MINER HELPER: 1. TRIPP ARNETT PREOPERATIVE DIAGNOSES: 1. Morbid obesity. 2. Body mass index of 50.4. 3. Gastroesophageal reflux disease. 4. Obstructive sleep apnea. 5. Diabetes type 2 insulin-dependent. 6. Hypertensive heart disease. 7. Vitamin D deficiency. 8. Glaucoma. 9. Osteoarthritis involving the bilateral hips. 10. Osteoarthritis of the bilateral knees. 11. Dietary surveillance and counseling. 12. Family history of stomach cancer. POSTOPERATIVE DIAGNOSES: 1. Morbid obesity. 2. Body mass index of 50.4. 3. Gastroesophageal reflux disease. 4. Obstructive sleep apnea. 5. Diabetes type 2 insulin-dependent. 6. Hypertensive heart disease. 7. Vitamin D deficiency. 8. Glaucoma. 9. Osteoarthritis involving the bilateral hips. 10. Osteoarthritis of the bilateral knees. 11. Dietary surveillance and counseling. 12. Family history of stomach cancer. 13. Fatty liver disease. 14. Hepatomegaly. OPERATION: 1. Robotic da Mariusz Xi assisted laparoscopic Aly-en-Y gastric bypass, 60 cm biliopancreatic limb, 75 cm antecolic antegastric Aly limb, with 25 mm EEA. 2. Intraoperative upper endoscopy with removal of foreign body with snare ANESTHESIA: courtney JARRETT ESTIMATED BLOOD LOSS: 60 mL SPECIMENS REMOVED: None. COMPLICATIONS: NONE. Condition: stable Disposition: floor INDICATIONS: Deann Wild is a 66-year-old female who presented to the bariatric center, November 2016. She has developed comorbidites of obstructive sleep apnea, diabetes type 2, osteoarthritis of the hips. At her height of 5 feet 1, her ideal body weight is 131 pounds. She comes in over 132 pounds overweight. Her body mass index is 50.4. She comes in with symptoms obstructive sleep apnea. She has completed cardiac risk assessment. As a result of her obesity, she has developed diabetes type 2, esophageal reflux, obstructive sleep apnea, osteoarthritis and hypertension. She is looking to the gastric bypass. All surgical options for morbid obesity had been described using the [place] bariatric surgery collaborative comorbidity resolution including complication risk score. A second-generation bariatric consent form was described in detail including the possibility of protein malnutrition, leaks , gastrojejunal stricture, venous thrombosis, need for further surgery for which she demonstrated understanding. Benefits and risks of the procedure were described at length. Informed consent was obtained. DESCRIPTION: The patient was brought into the operating room theater. She was placed on a split leg table. Preoperatively she had received Lovenox subcutaneously for DVT prophylaxis. Additionally she had undergone Peridex oral solution as an oral decontaminant. After general induction, the abdomen was prepped and draped in standard sterile fashion. A Mesa catheter was placed. Ioban draping was placed along the abdomen. A robotic da Mariusz Xi system was prepped and primed. At 20 cm from the xiphoid to just above the umbilicus, proposed port sites were marked with indelible marker along the anterior axillary line bilaterally, mid axillary line bilaterally with each ports were marked 10 cm from each other. The assistant store manager port was marked along the left lateral abdominal wall. The robotic stapler port was marked for the right midclavicular line. A 5 mm 0 degrees laparoscopic trocar entry was performed along the left upper quadrant. The abdomen was insufflated to 15 mmHg pressure she tolerated well. Diagnostic laparoscopy demonstrated no injury to bowel, viscera, or mesentery. The liver surface had findings consistent with fatty liver disease. Moderate hepatomegaly was also identified. No injury had occurred to the small bowel or viscera. No evidence of large prominent hiatal hernia was encountered. One 8 mm robotic port and 12-mm robot stapler port was were placed along the right mid abdomen. The camera 8-mm port was positioned along the epigastrium. One 8 mm robotic port and 12-mm robot ports were placed along the left upper abdominal wall after exchanging the 5 mm port. All bariatric length robotic trocars were used. Please note that the ports were placed at least 20 cm away from the target anatomy of the stomach. Care was taken to check each robotic arms were safely away from collision with the bed or the patient. At the xiphoid, a medium sized Anmol liver retractor was placed under direct visualization with the Iron Quarrying Specialist placed over the right shoulder of the patient. The patient was repositioned in reverse Trendelenburg position after lowering the bed. The robot was docked over the patient. Using two graspers and vessel sealer, the robotic system was docked and primed as described. Instruments were interchanged by the assistant store manager including scissors with electrocautery, needle driver education road instructor, and robotic stapler. I had sat at the console. Next, the transverse mesocolon was reflected into the upper abdomen after preparing for the jejunojejunostomy portion of the case. The ligament of Treitz was identified and measured 60 cm antegrade and marked using 2-0 Vicryl. The jejunum was divided at the 60 cm point above the suture measurement. The biliopancreatic limb was held in place by the third arm. The Aly limb was measured at 75 cm distally in an antegrade fashion to avoid tension along the proposed gastrojejunal anastomosis. At 75 cm along the anti-mesenteric border of the Aly limb, a jejunojejunostomy was proposed whereby enterotomies were created along the biliopancreatic limb including the Aly limb using a scissors with Bovie cautery. A stay suture of 2- 0 Vicryl was placed to align and create the anastomosis. The enterotomies along the anti-mesenteric borders were created followed by unidirectional fire from the patient's right side using 2 - 45 mm white load Smart technology robotic stapler. The jejunojejunostomy was found to be hemostatic. The enterotomy was closed after horizontal mattress stitch of 2-0 Vicryl used to elevate the enterotomy followed by closure with the robotic stapler white load, at least 2. Attention was now brought to the creation of the gastrojejunostomy. Along the lesser curvature of the stomach between the second and third veins, dissection was made along the retrogastric space to allow firing of the stapler. Dense posterior gastric adhesions were identified, hence increasing the complexity of her case. Initial stapler was fired perpendicular to the lesser curvature stomach was performed to start the gastric pouch. Additional manipulation and mobilization of the gastric pouch was performed where the stapler was fired toward the angle of His in an attempt to divide the gastric pouch from the gastric remnant, thus preventing future gastric gastric fistula. The patient was then prepared for placement of an Orvil. The patient was Mallampati 3. A 25-mm Orvil was selected for placement by the nurse fish packer. Initial attempts to pass an Orvil was performed however was dislodged along the posterior oropharynx. An Olympus upper scope was used to retrieve the anvil. A cold biopsy forceps was then passed from the posterior oropharynx using the upper scope. An anterior gastrotomy was performed. A snare was passed through the gastrotomy and brought along the posterior oropharynx. The anvil was then connected to the snare and brought out through the gastric pouch anterior to the staple line. As the Orvil had been placed, the blind jejunal limb was brought proximally into the upper abdomen. No torsion was found upon the Aly limb. No tension was identified as the limb was brought along the upper abdomen. The blind jejunal limb was opened using electro-Bovie cautery. The 25-mm EEA stapler was brought through the left anterior lateral port site from the left side. The EEA stapler was brought through the open jejunal limb and its needle was deployed at the antimesenteric border where the anvil were mated for approximately 1 minute upon firing. The stapler was removed after irrigating the shaft of the instrument with warm normal saline. Donuts were found to be intact on both sides. The open jejunal limb defect was closed using a stapler after releasing any tension from the blind jejunal limb. Hemostasis was checked. Care was taken to avoid any long blind limb or candycane syndrome. For the thin gastric stomach, reinforcement sutures at 6:00, 9:00 and 3:00 of the anastomosis were placed for reinforcement sutures along the gastrojejunal anastomosis. The mesenteric defects were obliterated by her intra-abdominal fat. I then went to the head of the bed to perform the esophagogastrojejunoscopy and a leak test. An Olympus gastroscope was passed along the posterior oropharynx which was unremarkable for any injury to the vocal cords. The scope was passed down to the proximal portion of the pouch, whereby no active bleeding was encountered. Good visualization of the gastrojejunostomy anastomosis, including the Aly limb was encountered with endoscopic image obtained. The anastomosis was found to be patent. The gastrointestinal tract was desufflated. No evidence of intraoperative leak was encountered as the gastric pouch and anastomosis were submerged under normal saline solution. I then went back to the bedside of the patient, whereby with coordinated effort of the assistant store manager, irrigation was aspirated from the upper abdominal cavity. Tisseal was placed circumferentially over the anastomosis of the gastrojejunostomy. All instruments and pneumoperitoneum were evacuated from the abdominal cavity. The port correlating with the EEA stapler device was copiously irrigated with normal saline solution and hydrogen peroxide. The fascial defect was closed using 0 Vicryl and Lorenzo Ribeiro. The rest of incisions were reapproximated 4- 0 Monocryl in a subcuticular fashion. For local anesthetic was infiltrated along the skin for postop analgesia. Dermabond was applied to the skin. OptiFoam dressing was placed along the EEA stapler site. At the end of the procedure, needle, sponge and instrument count had been verified correct by the certified surgical technologist. The patient had tolerated the procedure well and was extubated and taken to the postanesthesia unit in stable condition. Operative Findings: 1. Hepatomegaly 2. Moderately thickened small bowel requiring blue loads 3. Green loads performed along gastric pouch. 4. Mallampati 3 with moderately thickened posterior oral pharyngeal tissue 5. Retrieval of Anvil along posterior oropharynx requiring snare technique for removal and placement in gastric pouch using cold biopsy forceps 6. Thin gastric stomach requiring reinforcement sutures at 6:00, 9:00 and 3:00 of anastomosis. 7. Case was contaminated and will require prolonged antibiotics.
== END 2017-06-08 15:08 | disposition home health service (06) | DRG 619 ==
LOC: 2ORWHC 05:46 → 3SUR 12:15
PROVIDERS: ADMIT Surgery Plastic and Reconstructive Surgery; ATTEND Surgery Plastic and Reconstructive Surgery
PROC: 0D164ZA Bypass Stomach to Jejunum, Percutaneous Endoscopic Approach (ICD-10-PCS; principal; 2017-06-06)
PROC: 8E0W4CZ Robotic Assisted Procedure of Trunk Region, Percutaneous Endoscopic Approach (ICD-10-PCS; 2017-06-06)
PROC: 5A09357 Assistance with Respiratory Ventilation, Less than 24 Consecutive Hours, Continuous Positive Airway Pressure (ICD-10-PCS; 2017-06-06)
DX: E66.01 Morbid (severe) obesity due to excess calories (principal); J96.01 Acute respiratory failure with hypoxia; I27.20 Pulmonary hypertension, unspecified; R16.0 Hepatomegaly, not elsewhere classified; E83.42 Hypomagnesemia; J98.11 Atelectasis; I11.9 Hypertensive heart disease without heart failure; E11.9 Type 2 diabetes mellitus without complications; E55.9 Vitamin D deficiency, unspecified; E61.1 Iron deficiency; H40.9 Unspecified glaucoma; H54.62 Unqualified visual loss, left eye, normal vision right eye; K21.9 Gastro-esophageal reflux disease without esophagitis; K76.0 Fatty (change of) liver, not elsewhere classified; M16.0 Bilateral primary osteoarthritis of hip; M17.0 Bilateral primary osteoarthritis of knee; R00.0 Tachycardia, unspecified; R11.0 Nausea; M51.26 Other intervertebral disc displacement, lumbar region; Z68.43 Body mass index [BMI] 50.0-59.9, adult; Z79.4 Long term (current) use of insulin; Z79.82 Long term (current) use of aspirin; Z79.899 Other long term (current) drug therapy; Z88.8 Allergy status to other drugs, medicaments and biological substances
CPT/HCPCS: 71046; 80048; 80051; 82310; 82565; 82728; 83540; 83550; 83735; 84100; 84520; 85025; 85027; 86850; 86900; 86901; 94640; 94760

== ENCOUNTER → 2017-06-12 | Outpatient (CLI) | payer MEDICARE ==
[2017-06-12 12:39] VITALS: BP 124/69; PULSE 80; TEMP 97.7; BMI 49.8
--- NOTE | 2017-06-25 18:46 | P.PN ---
Subjective Progress Note Date: 06/12/17 DATE OF SERVICE: 06/12/2017 CHIEF COMPLAINT: Status post gastric bypass HISTORY OF PRESENT ILLNESS: Deann Wild is a 66-year-old female who is status post gastric bypass to 06/05/2017. She denies any abdominal pain. Blood sugars are between 150-200. She is passing flatus. She is 1 week out. No reports of nausea or vomiting. She is tolerating liquids. Her highest weight is 267 pounds. Her body mass index was 50.5. At her height of 5 feet 1, her ideal body weight is 131 pounds. She comes in 132 pounds overweight. She has lost 3 pounds in 1 week. PHYSICAL EXAM: VITAL SIGNS: Height 5 foot 1 inches, weight 263 pounds. BMI 49.9. Vital Signs Temp 97.7 F 06/12/17 12:33 Pulse 80 06/12/17 12:33 Resp BP 124/69 06/12/17 12:33 Pulse Ox GENERAL: Well-developed female in no acute distress. HEENT: No scleral icterus. Extraocular movements grossly intact. Hears conversational speech. No nasal drainage. NECK: Supple without lymphadenopathy. CHEST: Nonlabored respirations with equal bilateral excursions. CARDIOVASCULAR: Regular rate. Distal 2+ pulses. ABDOMEN: Obese, soft, incisions clean dry and intact. No signs of infection. Dressing discontinued. Seroma underneath left upper quadrant incision. No erythema identified. MUSCULOSKELETAL: No clubbing, cyanosis, or edema. Gross strength 5/5 distal lower extremities. NEURO: No focal or lateralizing signs. Cranial nerves 2 through 12 grossly within normal limits. PSYCH: Appropriate affect. Alert and oriented to person, place and time. SKIN: Good skin turgor. Well perfused. ASSESSMENT: 1. Morbid obesity. 2. Body mass index of 50.5 down to 49.9. 3. Gastroesophageal reflux disease. 4. Obstructive sleep apnea. 5. Diabetes type 2 insulin-dependent. 6. Hypertensive heart disease. 7. Vitamin D deficiency. 8. Glaucoma. 9. Osteoarthritis involving the bilateral hips. 10. Osteoarthritis of the bilateral knees. 11. Dietary surveillance and counseling. 12. Family history of stomach cancer. PLAN: 1. Her blood sugars are still over 150. Recommend sliding scale insulin interim. 2. Follow up in 1 week. 3. Recommend start of protein shakes. Objective - Vital Signs Vital signs: Vital Signs Temp 97.7 F 06/12/17 12:33 Pulse 80 06/12/17 12:33 Resp BP 124/69 06/12/17 12:33 Pulse Ox
== END | disposition home or self-care (01) ==
LOC: BARWHC3 12:10
PROVIDERS: ATTEND Surgery Plastic and Reconstructive Surgery
DX: E66.01 Morbid (severe) obesity due to excess calories (principal); K21.9 Gastro-esophageal reflux disease without esophagitis; G47.33 Obstructive sleep apnea (adult) (pediatric); E11.9 Type 2 diabetes mellitus without complications; I11.9 Hypertensive heart disease without heart failure; E55.9 Vitamin D deficiency, unspecified; H40.9 Unspecified glaucoma; M16.0 Bilateral primary osteoarthritis of hip; M17.0 Bilateral primary osteoarthritis of knee; Z80.0 Family history of malignant neoplasm of digestive organs; Z71.3 Dietary counseling and surveillance; Z79.4 Long term (current) use of insulin; Z68.42 Body mass index [BMI] 45.0-49.9, adult
CPT/HCPCS: 97803; G0463; 99211

== ENCOUNTER → 2017-07-05 | Outpatient (CLI) | payer MEDICARE ==
[2017-07-05 17:04] VITALS: BP 137/74; PULSE 82; RESP 16; TEMP 98.2; BMI 45.8
== END | disposition home or self-care (01) ==
LOC: BARWHC3 15:31
PROVIDERS: ATTEND Surgery Plastic and Reconstructive Surgery
DX: E66.01 Morbid (severe) obesity due to excess calories (principal); K21.9 Gastro-esophageal reflux disease without esophagitis; G47.33 Obstructive sleep apnea (adult) (pediatric); I12.9 Hypertensive chronic kidney disease with stage 1 through stage 4 chronic kidney disease, or unspecified chronic kidney disease; E11.22 Type 2 diabetes mellitus with diabetic chronic kidney disease; N18.3 Chronic kidney disease, stage 3 (moderate); H40.9 Unspecified glaucoma; H54.8 Legal blindness, as defined in USA; E11.3291 Type 2 diabetes mellitus with mild nonproliferative diabetic retinopathy without macular edema, right eye; E11.40 Type 2 diabetes mellitus with diabetic neuropathy, unspecified; M17.0 Bilateral primary osteoarthritis of knee; E78.5 Hyperlipidemia, unspecified; I08.1 Rheumatic disorders of both mitral and tricuspid valves; E21.1 Secondary hyperparathyroidism, not elsewhere classified; E89.1 Postprocedural hypoinsulinemia; D50.9 Iron deficiency anemia, unspecified; E44.0 Moderate protein-calorie malnutrition; E55.9 Vitamin D deficiency, unspecified; K74.1 Hepatic sclerosis; K50.90 Crohn's disease, unspecified, without complications; Z79.84 Long term (current) use of oral hypoglycemic drugs; Z79.4 Long term (current) use of insulin; Z79.899 Other long term (current) drug therapy; Z79.1 Long term (current) use of non-steroidal anti-inflammatories (NSAID); Z99.89 Dependence on other enabling machines and devices; Z96.649 Presence of unspecified artificial hip joint; Z68.42 Body mass index [BMI] 45.0-49.9, adult
CPT/HCPCS: 97803; G0463; 99211

== ENCOUNTER → 2017-07-13 | Outpatient (CLI) | payer MEDICARE ==
--- NOTE | 2017-07-13 18:55 | PN ---
PROGRESS NOTE DATE OF SERVICE: 07/13/2017 This patient is a 66-year-old lady who has been followed in the sleep center for treatment of severe obstructive sleep apnea-hypopnea syndrome. Recently patient had a polysomnogram and CPAP titration, and I discussed results of her sleep studies with the patient and her family in detail. Subsequently she was started on treatment with CPAP, and this is her first visit after starting her treatment. She is able to use her CPAP equipment every night for the whole night without significant problems. She sleeps better with the machine. According to her , she does not snore. [place] Sleepiness Scale today is 3. I checked the patient's CPAP unit and the recording from her machine. She is using it 100% of the time for more than 4 hours. Average usage is 8 hours and 58 minutes; 95th percentile of the pressure is 14.0. Leak 95; 95th percentile is 19.9, which is acceptable. There were several nights when the leak was less, but usually it is in normal acceptable range. Apnea-hypopnea index total for the last month is 4.0. By our recording, the patient has lost about 20 pounds, but totally she has lost about 31 pounds. MEDICATIONS: 1. Restoril. 2. Lantus. 3. Amaryl. 4. Metformin. 5. Prilosec. PHYSICAL EXAMINATION: GENERAL A pleasant lady without distress. VITAL SIGNS: BP 132/73, HR 86, RR 16, weight 243, temperature 97.7, oxygen saturation at room air 94%. HEENT: PERRLA, EOMI. Evaluation of oropharynx showed tongue protrudes midline; extremely low position of soft palate. NECK: Supple. No JVD. Thyroid is not palpable. LUNGS: Clear to percussion and to auscultation. Good air exchange. No wheezing or rhonchi. HEART: S1, S2 regular. No murmurs, gallops or rubs. ABDOMEN: Obese. EXTREMITIES : No clubbing or cyanosis. HELPER METAL HANGING: Awake, alert, and oriented X3. Cranial nerves 2 to 7 intact. There is no fasciculation or atrophy. noted. No focal deficits observed. IMPRESSION: 1. Severe obstructive sleep apnea-hypopnea syndrome; apnea-hypopnea index 31.47 with oxygen desaturation to 36.2%, controlled with CPAP. The patient demonstrated 100% compliance with treatment, benefitting from treatment. 2. Obesity. Patient has lost around 30 pounds. 3. Diabetes mellitus. 4. Hypertension. 5. Acid reflux. 6. Status post right hip total replacement. 7. Glaucoma, status post surgical treatment. 8. Status post left eye surgery for cataracts. PLAN: 1. Patient will continue to use her CPAP equipment every night for the whole night. 2. Continue losing weight. 3. Sleep hygiene with regular time in bed for at least 8 hours. 4. No driving if feeling any sleepiness. 5. Follow-up visit in 6 months, or earlier if patient has any problems. Thank you very much for allowing me to participate in the management of your patient. Sincerely, Rowdy Valle MD, PhD, FAASM Diplomat of [place] [employer] [place] [employer] Laser/Electro Optics Technician of [facility] [place] MMMANDEEP / CICI: [id number] /
== END | disposition home or self-care (01) ==
LOC: SLEEP 14:37
PROVIDERS: ATTEND Internal Medicine
DX: G47.33 Obstructive sleep apnea (adult) (pediatric) (principal); E66.9 Obesity, unspecified; E11.9 Type 2 diabetes mellitus without complications; I10 Essential (primary) hypertension; K21.9 Gastro-esophageal reflux disease without esophagitis; Z96.641 Presence of right artificial hip joint; H40.9 Unspecified glaucoma; Z98.890 Other specified postprocedural states; Z99.89 Dependence on other enabling machines and devices; Z79.899 Other long term (current) drug therapy; Z79.4 Long term (current) use of insulin

== ENCOUNTER → 2017-09-06 | Outpatient (CLI) | payer MEDICARE ==
[2017-09-06 14:06] VITALS: BP 147/82; PULSE 78; RESP 16; TEMP 98; BMI 43.4
--- NOTE | 2017-09-06 16:05 | P.PN ---
Subjective Progress Note Date: 09/06/17 HPI: No reports of nausea or vomiting. She has great energy. Blood sugars are 110 to 140s with lower insulin and Metformin. Has panniculitis. PLAN: 1. Recommend labs for low iron from last blood draw. 2. Nystatin powder for panniculitis. 3. Follow-up November 2017 Objective - Vital Signs Vital signs: Vital Signs Temp 98 F 09/06/17 14:03 Pulse 78 09/06/17 14:03 Resp 16 09/06/17 14:03 BP 147/82 09/06/17 14:03 Pulse Ox Intake & Output 09/05/17 09/06/17 09/06/17 18:59 06:59 18:59 Weight 104.411 kg
[2017-09-06 18:04] LABS: HCT 43.4 % (34.0-46.0); HGB 13.8 gm/dL (11.4-16.0); MCH 26.9 pg (25.0-35.0); MCHC 31.8 g/dL (31.0-37.0); MCV 84.6 fL (80.0-100.0); Mean Platelet Volume 8.7; Platelet Count 269 k/uL (150-450); RBC 5.13 m/uL (3.80-5.40); RDW 15.8 % (11.5-15.5); WBC 7.2 k/uL (3.8-10.6)
[2017-09-06 18:07] LABS: INR 1.1 (<1.2); Partial Thromboplastin Time 25.2 sec (22.0-30.0); Prothrombin Time 10.5 sec (9.0-12.0)
[2017-09-06 18:16] LABS: Albumin 4.4 g/dL (3.5-5.0); Calcium 10.1 mg/dL (8.4-10.2); Magnesium 1.5 mg/dL (1.6-2.3); Phosphorus 4.2 mg/dL (2.5-4.5); Potassium 4.7 mmol/L (3.5-5.1); Total Bilirubin 0.3 mg/dL (0.2-1.3); Total Protein 7.2 g/dL (6.3-8.2)
[2017-09-07 01:11] LABS: Iron Saturation 16.39 (12.00-45.00)
[2017-09-07 01:21] LABS: Vitamin D 25 Hydroxy 44.4 ng/mL (30.0-100.0)
[2017-09-07 01:27] LABS: Folate, Serum >24.0 ng/mL
[2017-09-07 01:36] LABS: Hemoglobin A1C 8.7 % (4.0-6.0)
[2017-09-07 01:54] LABS: Vitamin B12 >4000.0 pg/mL (211-911)
[2017-09-07 02:03] LABS: Parathyroid Hormone Intact 118.3 pg/mL (14.0-72.0)
[2017-09-08 15:31] LABS: Zinc, Serum 87 ug/dL (60-130)
[2017-09-09 10:11] LABS: Vitamin A 60 ug/dL (38-106)
[2017-09-11 06:16] LABS: Vitamin B1 76 ug/L (38-122)
[2017-09-12 16:53] LABS: Selenium 146 mcg/L (63-160)
== END | disposition home or self-care (01) ==
LOC: BARWHC3 13:21
PROVIDERS: ATTEND Surgery Plastic and Reconstructive Surgery
DX: E66.01 Morbid (severe) obesity due to excess calories (principal); M79.3 Panniculitis, unspecified; E21.1 Secondary hyperparathyroidism, not elsewhere classified; E89.1 Postprocedural hypoinsulinemia; D50.9 Iron deficiency anemia, unspecified; K90.9 Intestinal malabsorption, unspecified; E55.9 Vitamin D deficiency, unspecified; K74.1 Hepatic sclerosis; N19 Unspecified kidney failure; K50.90 Crohn's disease, unspecified, without complications
CPT/HCPCS: 84255; 84134; 84425; 80061; 80053; 82607; 82728; 82525; 82746; 83540; 83550; 83735; 84100; 84443; 84590; 84630; 85027; 85610; 85730; 82306; 83970; 83036; 97803; 36415; G0463; 99211

== ENCOUNTER → 2017-12-06 | Outpatient (CLI) | payer MEDICARE ==
[2017-12-06 14:59] VITALS: BP 119/78; PULSE 68; TEMP 98.1; BMI 40.2
--- NOTE | 2017-12-06 16:05 | P.PN ---
Subjective Progress Note Date: 12/06/17 DATE OF SERVICE: 12/06/2017 CHIEF COMPLAINT: Status post gastric bypass HISTORY OF PRESENT ILLNESS: Deann Wild is a 67-year-old female who is status post gastric bypass to 06/05/2017. She is 6 months out. No reports of gastroesophageal reflux disease. She has improvement of her sleep apnea. Her blood sugars are improved to 99 to 120s. Insulin dose prior to surgery was 30 units and is now down to 18. Metformin dose is also improved. Her highest weight is 274 pounds. Her body mass index was 51.9. At her height of 5 feet 1, her ideal body weight is 131 pounds. Lifetime weight loss of 61 pounds. She has lost 17 pounds in 3 months since her last visit. Percent excess weight loss 43 %. Body mass index reduced to 40.2. PAST MEDICAL HISTORY: 1. Morbid obesity. 2. Body mass index of 51.9, initial 3. Gastroesophageal reflux disease. 4. Obstructive sleep apnea. 5. Diabetes type 2 insulin-dependent. 6. Hypertensive heart disease. 7. Vitamin D deficiency. 8. Glaucoma. PAST SURGICAL HISTORY: 1. . 2. Right hip surgery. 3. Bilateral Cataract extraction 4. Gastric bypass. HOME MEDICATIONS: 1. Insulin. 2. Omeprazole. ALLERGIES: 1. CELECOXIB SOCIAL HISTORY: No active tobacco use. She is . FAMILY HISTORY: Has family history of ulcerative colitis disease and Crohn's disease. She does have a family history of morbid obesity. Significant for stomach cancer. REVIEW OF ORGAN SYSTEMS: CONSTITUTIONAL: Her highest weight is 274 pounds. Her body mass index was 51.9. At her height of 5 feet 1, her ideal body weight is 131 pounds. Lifetime weight loss of 61 pounds. She has lost 17 pounds in 3 months since her last visit. Percent excess weight loss 43 %. Body mass index reduced to 40.2. HEENT: Denies any active troubles with vision or hearing. ENDOCRINE: Has diabetes. No hypothyroidism. CARDIOVASCULAR: No reports of palpitations or heart attacks or chest pain. RESPIRATORY: Has sleep apnea. No recent asthma. GI: Denies any bright red blood per rectum, diarrhea or constipation. Gastroesophageal reflux disease is resolved. MUSCULOSKELETAL: Describes generalized muscle aches. Has lower back pain and joint pain. NEURO: There were no reports of headaches or seizure disorders. PSYCH: Has depression without suicidal ideation. HEMATOLOGIC: Denies any abnormal bleeding or bruising. SKIN: No rash. No skin cancer. PHYSICAL EXAM: VITAL SIGNS: Height 5 foot 1 inches, weight 213 pounds. BMI 40.2 Vital Signs Temp 98.1 F 12/06/17 14:56 Pulse 68 12/06/17 14:56 Resp BP 119/78 12/06/17 14:56 Pulse Ox GENERAL: Well-developed female in no acute distress. HEENT: No scleral icterus. Extraocular movements grossly intact. Hears conversational speech. No nasal drainage. NECK: Supple without lymphadenopathy. CHEST: Nonlabored respirations with equal bilateral excursions. CARDIOVASCULAR: Regular rate. Distal 2+ pulses. ABDOMEN: Obese, soft, nondistended. Nontender. No hernias. MUSCULOSKELETAL: No clubbing, cyanosis, or edema. Gross strength 5/5 distal lower extremities. NEURO: No focal or lateralizing signs. Cranial nerves 2 through 12 grossly within normal limits. PSYCH: Appropriate affect. Alert and oriented to person, place and time. SKIN: Good skin turgor. Well perfused. ASSESSMENT: 1. Morbid obesity. 2. Body mass index of 51.9 down to 40.2. 3. Gastroesophageal reflux disease. 4. Obstructive sleep apnea. 5. Diabetes type 2 insulin-dependent. 6. Hypertensive heart disease. 7. Vitamin D deficiency. 8. Glaucoma. 9. Osteoarthritis involving the bilateral hips. 10. Osteoarthritis of the bilateral knees. 11. Dietary surveillance and counseling. 12. Status post gastric bypass 13. Iron deficiency anemia. 14. Panniculitis. 15. TSH suppressed. 16. Secondary hyperparathyroidism. 17. Panniculitis. 18. Status post gastric bypass PLAN: 1. She has occassional irritation of panniculitis. Recommend Nystatin. 2. She is gardening and has a anderson today. 3. Recommend bariatric labs Objective - Vital Signs Vital signs: Vital Signs Temp 98.1 F 12/06/17 14:56 Pulse 68 12/06/17 14:56 Resp BP 119/78 12/06/17 14:56 Pulse Ox Intake & Output 12/05/17 12/06/17 12/06/17 18:59 06:59 18:59 Weight 96.615 kg - Labs CBC & Chem 7: 12/06/17 16:31 12/06/17 16:31
[2017-12-06 17:19] LABS: HCT 39.7 % (34.0-46.0); HGB 12.5 gm/dL (11.4-16.0); MCH 26.7 pg (25.0-35.0); MCHC 31.5 g/dL (31.0-37.0); MCV 84.9 fL (80.0-100.0); Mean Platelet Volume 8.2; Platelet Count 257 k/uL (150-450); RBC 4.67 m/uL (3.80-5.40); RDW 14.5 % (11.5-15.5); WBC 6.5 k/uL (3.8-10.6)
[2017-12-06 17:20] LABS: Albumin 4.2 g/dL (3.5-5.0); Total Protein 7.3 g/dL (6.3-8.2)
[2017-12-06 17:21] LABS: Calcium 10.1 mg/dL (8.4-10.2); INR 1.1 (<1.2); Magnesium 1.7 mg/dL (1.6-2.3); Partial Thromboplastin Time 25.4 sec (22.0-30.0); Phosphorus 4.1 mg/dL (2.5-4.5); Prothrombin Time 10.5 sec (9.0-12.0); Total Bilirubin 0.3 mg/dL (0.2-1.3)
[2017-12-07 00:44] LABS: Parathyroid Hormone Intact 86.2 pg/mL (14.0-72.0)
[2017-12-07 00:55] LABS: Iron Saturation 14.54 (12.00-45.00)
[2017-12-07 01:04] LABS: Vitamin D 25 Hydroxy 60.2 ng/mL (30.0-100.0)
[2017-12-07 01:48] LABS: Folate, Serum >24.0 ng/mL
[2017-12-07 11:46] LABS: Zinc, Serum 83 ug/dL (60-130)
[2017-12-07 12:51] LABS: Vitamin B1 72 ug/L (38-122)
[2017-12-08 07:02] LABS: Vitamin A 53 ug/dL (38-106)
[2017-12-08 18:30] LABS: Selenium 148 mcg/L (63-160)
== END | disposition home or self-care (01) ==
LOC: BARWHC3 13:51
PROVIDERS: ATTEND Surgery Plastic and Reconstructive Surgery
DX: Z09 Encounter for follow-up examination after completed treatment for conditions other than malignant neoplasm (principal); Z98.84 Bariatric surgery status; E66.01 Morbid (severe) obesity due to excess calories; K21.9 Gastro-esophageal reflux disease without esophagitis; G47.33 Obstructive sleep apnea (adult) (pediatric); E11.9 Type 2 diabetes mellitus without complications; E55.9 Vitamin D deficiency, unspecified; M16.0 Bilateral primary osteoarthritis of hip; H40.9 Unspecified glaucoma; I11.9 Hypertensive heart disease without heart failure; M17.0 Bilateral primary osteoarthritis of knee; D50.9 Iron deficiency anemia, unspecified; M79.3 Panniculitis, unspecified; N25.81 Secondary hyperparathyroidism of renal origin; Z68.41 Body mass index [BMI] 40.0-44.9, adult; Z71.3 Dietary counseling and surveillance; E89.1 Postprocedural hypoinsulinemia; K90.9 Intestinal malabsorption, unspecified; K74.1 Hepatic sclerosis; N19 Unspecified kidney failure; K50.90 Crohn's disease, unspecified, without complications; Z88.8 Allergy status to other drugs, medicaments and biological substances; Z79.4 Long term (current) use of insulin; Z79.899 Other long term (current) drug therapy
CPT/HCPCS: 84255; 84134; 84425; 80061; 80053; 82607; 82728; 82525; 82746; 83540; 83550; 83735; 84100; 84443; 84590; 84630; 85027; 85610; 85730; 82306; 83970; 97803; G0463; 99211

== ENCOUNTER → 2018-03-07 | Outpatient (CLI) | payer MEDICARE ==
--- NOTE | 2018-03-07 16:12 | P.PN ---
Subjective Progress Note Date: 03/07/18 DATE OF SERVICE: 03/07/2018 CHIEF COMPLAINT: Status post gastric bypass HISTORY OF PRESENT ILLNESS: Deann Wild is a 67-year-old female who is status post gastric bypass to 06/05/2017. She is 9 months out. She reports blood sugars are under 150. She has no problems with abdominal pain. Her highest weight is 274 pounds. Her body mass index was 51.9. At her height of 5 feet 1, her ideal body weight is 131 pounds. Lifetime weight loss of 72 pounds. She has lost 10 pounds in 3 months since her last visit. Percent excess weight loss 50%. Body mass index reduced to 38.3. PAST MEDICAL HISTORY: 1. Morbid obesity due to excess calories 2. Body mass index of 51.9, initial 3. Gastroesophageal reflux disease. 4. Obstructive sleep apnea. 5. Diabetes type 2 insulin-dependent. 6. Hypertensive heart disease. 7. Vitamin D deficiency. 8. Glaucoma. PAST SURGICAL HISTORY: 1. . 2. Right hip surgery. 3. Bilateral Cataract extraction 4. Gastric bypass. HOME MEDICATIONS: 1. Insulin. 2. Omeprazole. ALLERGIES: 1. CELECOXIB SOCIAL HISTORY: No active tobacco use. She is . FAMILY HISTORY: Has family history of ulcerative colitis disease and Crohn's disease. She does have a family history of morbid obesity. Significant for stomach cancer. REVIEW OF ORGAN SYSTEMS: CONSTITUTIONAL: Her highest weight is 274 pounds. Her body mass index was 51.9. At her height of 5 feet 1, her ideal body weight is 131 pounds. HEENT: Denies any active troubles with vision or hearing. ENDOCRINE: Has diabetes and insulin dose has decreased. No hypothyroidism. CARDIOVASCULAR: No reports of palpitations or heart attacks or chest pain. RESPIRATORY: Has sleep apnea. No recent asthma. GI: Denies any bright red blood per rectum, diarrhea or constipation. Gastroesophageal reflux disease is resolved. MUSCULOSKELETAL: Describes generalized muscle aches. Has lower back pain and joint pain. NEURO: There were no reports of headaches or seizure disorders. PSYCH: Has depression without suicidal ideation. HEMATOLOGIC: Denies any abnormal bleeding or bruising. SKIN: No rash. No skin cancer. PHYSICAL EXAM: VITAL SIGNS: Height 5 foot 1 inches, weight 202 pounds. BMI 38.3 Vital Signs Temp 98.2 F 03/07/18 15:26 Pulse 70 03/07/18 15:26 Resp BP 136/71 03/07/18 15:26 Pulse Ox GENERAL: Well-developed female in no acute distress. HEENT: No scleral icterus. Extraocular movements grossly intact. Hears conversational speech. No nasal drainage. NECK: Supple without lymphadenopathy. CHEST: Nonlabored respirations with equal bilateral excursions. CARDIOVASCULAR: Regular rate. Distal 2+ pulses. ABDOMEN: Obese, soft, nondistended. Nontender. MUSCULOSKELETAL: No clubbing, cyanosis, or edema. NEURO: No focal or lateralizing signs. Cranial nerves 2 through 12 grossly within normal limits. PSYCH: Appropriate affect. Alert and oriented to person, place and time. SKIN: Good skin turgor. Well perfused. ASSESSMENT: 1. Morbid obesity due to excess calories 2. Body mass index of 51.9 down to 38.3 3. Gastroesophageal reflux disease. 4. Obstructive sleep apnea. 5. Diabetes type 2 insulin-dependent. 6. Hypertensive heart disease. 7. Vitamin D deficiency. 8. Glaucoma. 9. Osteoarthritis involving the bilateral hips. 10. Osteoarthritis of the bilateral knees. 11. Dietary surveillance and counseling. 12. Status post gastric bypass 13. Iron deficiency anemia. 14. Panniculitis. 15. TSH suppressed. 16. Secondary hyperparathyroidism. 17. Panniculitis. 18. Status post gastric bypass PLAN: 1. Recommend low carb diet to address slow weight loss and hyperglycemia. 2. Recommend bariatric labs in March 2018.
[2018-03-07 17:11] VITALS: BP 136/71; PULSE 70; TEMP 98.2; BMI 38.3
== END | disposition home or self-care (01) ==
LOC: BARWHC3 15:19
PROVIDERS: ATTEND Surgery Plastic and Reconstructive Surgery
DX: Z48.815 Encounter for surgical aftercare following surgery on the digestive system (principal); E66.01 Morbid (severe) obesity due to excess calories; K21.9 Gastro-esophageal reflux disease without esophagitis; G47.33 Obstructive sleep apnea (adult) (pediatric); I11.9 Hypertensive heart disease without heart failure; E11.9 Type 2 diabetes mellitus without complications; E55.9 Vitamin D deficiency, unspecified; H40.9 Unspecified glaucoma; M16.0 Bilateral primary osteoarthritis of hip; M17.0 Bilateral primary osteoarthritis of knee; D50.9 Iron deficiency anemia, unspecified; M79.3 Panniculitis, unspecified; N25.81 Secondary hyperparathyroidism of renal origin; Z68.38 Body mass index [BMI] 38.0-38.9, adult; Z98.84 Bariatric surgery status; Z79.4 Long term (current) use of insulin; Z79.899 Other long term (current) drug therapy; Z88.8 Allergy status to other drugs, medicaments and biological substances
CPT/HCPCS: 97803; G0463; 99211

== ENCOUNTER → 2018-06-27 | Outpatient (CLI) | payer MEDICARE ==
--- NOTE | 2018-06-27 16:27 | P.PN ---
Subjective Progress Note Date: 06/27/18 DATE OF SERVICE: 06/27/2018 CHIEF COMPLAINT: Status post gastric bypass HISTORY OF PRESENT ILLNESS: Deann Wild is a 67-year-old female who is status post gastric bypass to 06/05/2017. She is 1 year out. Her weight is stable. She has 65 pounds weight loss. She has decreased her insulin units to 16 units each night. She is not exercising. Protein intake is insufficient. Her highest weight is 274 pounds. Her body mass index was 51.9. At her height of 5 feet 1, her ideal body weight is 131 pounds. Lifetime weight loss of 72 pounds. Her weight is unchanged since her last visit, 5 months ago. Percent excess weight loss 51%. Body mass index reduced to 38.3. PAST MEDICAL HISTORY: 1. Morbid obesity due to excess calories 2. Body mass index of 51.9, initial 3. Gastroesophageal reflux disease. 4. Obstructive sleep apnea. 5. Diabetes type 2 insulin-dependent. 6. Hypertensive heart disease. 7. Vitamin D deficiency. 8. Glaucoma. PAST SURGICAL HISTORY: 1. . 2. Right hip surgery. 3. Bilateral Cataract extraction 4. Gastric bypass. HOME MEDICATIONS: 1. Insulin. 2. Omeprazole. ALLERGIES: 1. CELECOXIB SOCIAL HISTORY: No active tobacco use. She is . FAMILY HISTORY: Has family history of ulcerative colitis disease and Crohn's disease. She does have a family history of morbid obesity. Significant for stomach cancer. REVIEW OF ORGAN SYSTEMS: CONSTITUTIONAL: Her highest weight is 274 pounds. Her body mass index was 51.9. At her height of 5 feet 1, her ideal body weight is 131 pounds. HEENT: Denies any active troubles with vision or hearing. ENDOCRINE: Has diabetes and insulin dose has decreased. No hypothyroidism. CARDIOVASCULAR: No reports of palpitations or heart attacks or chest pain. RESPIRATORY: Has sleep apnea. No recent asthma. GI: Denies any bright red blood per rectum, diarrhea or constipation. Gastroesophageal reflux disease is resolved. MUSCULOSKELETAL: Describes generalized muscle aches. Has lower back pain and joint pain. NEURO: There were no reports of headaches or seizure disorders. PSYCH: Has depression without suicidal ideation. HEMATOLOGIC: Denies any abnormal bleeding or bruising. SKIN: No rash. No skin cancer. PHYSICAL EXAM: VITAL SIGNS: Height 5 foot 1 inches, weight 202 pounds. BMI 38.3 Vital Signs Temp 98.2 F 06/27/18 17:13 Pulse 73 06/27/18 17:13 Resp BP 130/71 06/27/18 17:13 Pulse Ox GENERAL: Well-developed female in no acute distress. HEENT: No scleral icterus. Extraocular movements grossly intact. Hears conversational speech. No nasal drainage. NECK: Supple without lymphadenopathy. CHEST: Nonlabored respirations with equal bilateral excursions. CARDIOVASCULAR: Regular rate. Distal 2+ pulses. ABDOMEN: Obese, soft, nondistended. Nontender. No hernia MUSCULOSKELETAL: No clubbing, cyanosis, or edema. NEURO: No focal or lateralizing signs. Cranial nerves 2 through 12 grossly within normal limits. PSYCH: Appropriate affect. Alert and oriented to person, place and time. SKIN: Good skin turgor. Well perfused. ASSESSMENT: 1. Morbid obesity due to excess calories 2. Body mass index of 51.9 down to 38.2 3. Gastroesophageal reflux disease. 4. Obstructive sleep apnea. 5. Diabetes type 2 insulin-dependent. 6. Hypertensive heart disease. 7. Vitamin D deficiency. 8. Glaucoma. 9. Osteoarthritis involving the bilateral hips. 10. Osteoarthritis of the bilateral knees. 11. Dietary surveillance and counseling. 12. Status post gastric bypass 13. Iron deficiency anemia. 14. Panniculitis. 15. TSH suppressed. 16. Secondary hyperparathyroidism. 17. Panniculitis. 18. Status post gastric bypass PLAN: 1. She will need to track her foods as she is at risk for weight gain. 2. Target protein is under 75 grams. 3. Recommend start of exercise. 4. Recommend bariatric labs today. Laboratory Last Values WBC 6.1 k/uL (3.8-10.6) 06/27/18 17:45 RBC 4.90 m/uL (3.80-5.40) 06/27/18 17:45 Hgb 13.5 gm/dL (11.4-16.0) 06/27/18 17:45 Hct 43.0 % (34.0-46.0) 06/27/18 17:45 MCV 87.6 fL (80.0-100.0) 06/27/18 17:45 MCH 27.5 pg (25.0-35.0) 06/27/18 17:45 MCHC 31.4 g/dL (31.0-37.0) 06/27/18 17:45 RDW 13.8 % (11.5-15.5) 06/27/18 17:45 Plt Count 252 k/uL (150-450) 06/27/18 17:45 PT 10.2 sec (9.0-12.0) 06/27/18 17:45 INR 0.9 (<1.2) 06/27/18 17:45 APTT 24.8 sec (22.0-30.0) 06/27/18 17:45 Sodium 139 mmol/L (135-145) 06/27/18 17:45 Potassium 4.6 mmol/L (3.5-5.5) 06/27/18 17:45 Chloride 103 mmol/L (96-109) 06/27/18 17:45 Carbon Dioxide 26.4 mmol/L (21.6-31.8) 06/27/18 17:45 Anion Gap 9.60 mmol/L (4.00-12.00) 06/27/18 17:45 BUN 36.0 mg/dL (9.0-27.0) H 06/27/18 17:45 Creatinine 1.1 mg/dL (0.6-1.5) 06/27/18 17:45 Est GFR (CKD-EPI)AfAm 60.2 (60.0-200.0) 06/27/18 17:45 Est GFR (CKD-EPI)NonAf 51.9 (60.0-200.0) L 06/27/18 17:45 BUN/Creatinine Ratio 32.73 Ratio (12.00-20.00) H 06/27/18 17:45 Glucose 134 mg/dL (70-110) H 06/27/18 17:[address] Glu mg/dL 166 06/27/18 17:45 Hemoglobin A1c 7.4 % (4.0-6.0) H 06/27/18 17:45 Calcium 10.2 mg/dL (8.7-10.3) 06/27/18 17:45 Phosphorus 4.1 mg/dL (2.4-5.1) 06/27/18 17:45 Magnesium 1.7 mg/dL (1.5-2.4) 06/27/18 17:45 Iron 43 ug/dL (50-170) L 06/27/18 17:45 TIBC 294 ug/dL (228-460) 06/27/18 17:45 Iron Saturation 14.63 (12.00-45.00) 06/27/18 17:45 Ferritin 190.4 ng/mL (10.0-291.0) 06/27/18 17:45 Total Bilirubin 0.4 mg/dL (0.3-1.2) 06/27/18 17:45 AST 22 U/L (13-35) 06/27/18 17:45 ALT 27 U/L (8-44) 06/27/18 17:45 Alkaline Phosphatase 66 U/L (41-126) 06/27/18 17:45 Total Protein 7.0 g/dL (6.2-8.2) 06/27/18 17:45 Albumin 4.50 g/dL (3.80-4.90) 06/27/18 17:45 Globulin 2.5 g/dL (1.6-3.3) 06/27/18 17:45 Albumin/Globulin Ratio 1.80 g/dL (1.60-3.17) 06/27/18 17:45 Prealbumin 27.0 mg/dL (18.0-42.0) 06/27/18 17:45 Triglycerides 101.0 mg/dL (0.0-149.0) 06/27/18 17:45 Cholesterol 190 mg/dL (0-200) 06/27/18 17:45 LDL Cholesterol, Calc 103.8 mg/dL (0.0-131.0) 06/27/18 17:45 VLDL Cholesterol, Calc 20.20 mg/dL (5.00-40.00) 06/27/18 17:45 HDL Cholesterol 66.0 mg/dL (40.0-60.0) H 06/27/18 17:45 Cholesterol/HDL Ratio 2.88 06/27/18 17:45 Vitamin A 72 ug/dL (38-106) 06/27/18 17:45 Vitamin B1 97 ug/L (38-122) 06/27/18 17:45 Vitamin B12 >4000.0 pg/mL (211-911) H 06/27/18 17:45 Vitamin D 25-Hydroxy 64.8 ng/mL (30.0-100.0) 06/27/18 17:45 Folate >24.0 ng/mL 06/27/18 17:45 TSH 2.610 uIU/mL (0.350-5.500) 06/27/18 17:45 PTH Intact 79.2 pg/mL (14.0-72.0) H 06/27/18 17:45 Copper 1061 ug/L (810-1990) 06/27/18 17:45 Selenium 291 mcg/L (63-160) H 06/27/18 17:45 Zinc 86 ug/dL (60-130) 06/27/18 17:45 Iron is low Selenium elevated PTH elevated Objective - Labs CBC & Chem 7: 06/27/18 17:45 06/27/18 17:45
[2018-06-27 17:24] VITALS: BP 130/71; PULSE 73; TEMP 98.2; BMI 38.2
[2018-06-27 19:01] LABS: HGB 13.5 gm/dL (11.4-16.0); MCH 27.5 pg (25.0-35.0); MCHC 31.4 g/dL (31.0-37.0); MCV 87.6 fL (80.0-100.0); Mean Platelet Volume 8.2; Platelet Count 252 k/uL (150-450); RDW 13.8 % (11.5-15.5); WBC 6.1 k/uL (3.8-10.6)
[2018-06-27 19:14] LABS: INR 0.9 (<1.2); Partial Thromboplastin Time 24.8 sec (22.0-30.0); Prothrombin Time 10.2 sec (9.0-12.0)
[2018-06-28 06:07] LABS: Hemoglobin A1C 7.4 % (4.0-6.0)
[2018-06-28 06:09] LABS: Iron Saturation 14.63 (12.00-45.00); Parathyroid Hormone Intact 79.2 pg/mL (14.0-72.0); Vitamin D 25 Hydroxy 64.8 ng/mL (30.0-100.0)
[2018-06-28 06:18] LABS: Folate, Serum >24.0 ng/mL
[2018-06-28 13:01] LABS: Vitamin B12 >4000.0 pg/mL (211-911)
[2018-06-28 16:17] LABS: Albumin 4.5 g/dL (3.80-4.90); Albumin/Globulin Ratio 1.8 (1.60-3.17); Anion Gap 9.6 mmol/L (4.00-12.00); Calcium 10.2 mg/dL (8.7-10.3); Carbon Dioxide 26.4 mmol/L (21.6-31.8); Globulin 2.5 g/dL (1.6-3.3); LDL Cholesterol,Calculated 103.8 mg/dL (0.0-131.0); Magnesium 1.7 mg/dL (1.5-2.4); Phosphorus 4.1 mg/dL (2.4-5.1); Potassium 4.6 mmol/L (3.5-5.5); Total Bilirubin 0.4 mg/dL (0.3-1.2); VLDL Calculation 20.2 mg/dL (5.00-40.00)
[2018-06-29 15:17] LABS: Zinc, Serum 86 ug/dL (60-130)
[2018-07-02 08:03] LABS: Vitamin A 72 ug/dL (38-106)
[2018-07-03 08:14] LABS: Vit B1(Thiamine) 97 ug/L (38-122)
[2018-07-04 19:11] LABS: Selenium 291 mcg/L (63-160)
== END | disposition home or self-care (01) ==
LOC: BARWHC3 14:31
PROVIDERS: ATTEND Surgery Plastic and Reconstructive Surgery
DX: Z48.815 Encounter for surgical aftercare following surgery on the digestive system (principal); E66.01 Morbid (severe) obesity due to excess calories; K21.9 Gastro-esophageal reflux disease without esophagitis; G47.33 Obstructive sleep apnea (adult) (pediatric); E11.9 Type 2 diabetes mellitus without complications; I11.9 Hypertensive heart disease without heart failure; E55.9 Vitamin D deficiency, unspecified; H40.9 Unspecified glaucoma; M16.0 Bilateral primary osteoarthritis of hip; M17.0 Bilateral primary osteoarthritis of knee; D50.9 Iron deficiency anemia, unspecified; M79.3 Panniculitis, unspecified; E21.1 Secondary hyperparathyroidism, not elsewhere classified; E89.1 Postprocedural hypoinsulinemia; K90.9 Intestinal malabsorption, unspecified; K76.9 Liver disease, unspecified; N19 Unspecified kidney failure; K50.90 Crohn's disease, unspecified, without complications; Z68.38 Body mass index [BMI] 38.0-38.9, adult; Z71.3 Dietary counseling and surveillance; Z98.84 Bariatric surgery status; Z79.4 Long term (current) use of insulin; Z79.899 Other long term (current) drug therapy; Z88.6 Allergy status to analgesic agent
CPT/HCPCS: 84255; 84134; 84425; 80061; 80053; 82607; 82728; 82525; 82746; 83540; 83550; 83735; 84100; 84443; 84590; 84630; 85027; 85610; 85730; 82306; 83970; 83036; 97803; 36415; G0463; 99211

== ENCOUNTER → 2018-08-29 | Outpatient (CLI) | payer MEDICARE ==
[2018-08-29 13:36] VITALS: BP 119/76; PULSE 67; TEMP 97.9; BMI 37.8
--- NOTE | 2018-08-29 15:00 | P.PN ---
Subjective Progress Note Date: 08/29/18 HPI: She reports blood sugars of 147 without medications. Her carbs is less than 20 to 50 g daily. She is starting to be more active ABDOMEN: Doing well ASSESSMENT: 1. Morbid obesity 2. Dietary surveillance 3. Diabetes PLAN: 1. Do something for weight loss 2. MVI Objective - Vital Signs Vital signs: Vital Signs Temp 97.9 F 08/29/18 13:32 Pulse 67 08/29/18 13:32 Resp BP 119/76 08/29/18 13:32 Pulse Ox Intake & Output 08/28/18 08/29/18 08/29/18 18:59 06:59 18:59 Weight 90.809 kg
== END | disposition home or self-care (01) ==
LOC: BARWHC3 12:58
PROVIDERS: ATTEND Surgery Plastic and Reconstructive Surgery
DX: E66.01 Morbid (severe) obesity due to excess calories (principal); E11.9 Type 2 diabetes mellitus without complications; Z71.3 Dietary counseling and surveillance; E21.1 Secondary hyperparathyroidism, not elsewhere classified; E89.1 Postprocedural hypoinsulinemia; D50.9 Iron deficiency anemia, unspecified; K90.9 Intestinal malabsorption, unspecified; E55.9 Vitamin D deficiency, unspecified; K76.9 Liver disease, unspecified; N19 Unspecified kidney failure; K50.90 Crohn's disease, unspecified, without complications; Z68.37 Body mass index [BMI] 37.0-37.9, adult
CPT/HCPCS: 97803; G0463; 99211

== ENCOUNTER → 2019-01-24 | Outpatient (CLI) | payer MEDICARE ==
--- NOTE | 2019-01-24 17:28 | PN ---
PROGRESS NOTE DATE OF SERVICE: 01/24/2019 This patient is a 68-year-old lady who has been followed in the sleep center for treatment of obstructive sleep apnea-hypopnea syndrome. Patient continues to use her CPAP equipment every night for the whole night without snoring. She may have some awakenings with nocturia, but according to her she drinks a lot of water at bedtime. [place] Sleepiness Scale today is 0. I checked her CPAP unit. Range of pressure is 5 to 16, average pressure 12.8, leak 23 L/minute, which is acceptable. Apnea-hypopnea index 82.5, which is normal. MEDICATIONS: 1. Metformin. 2. Prilosec. PHYSICAL EXAMINATION: GENERAL: A pleasant lady without distress. VITAL SIGNS: BP 145/74, HR 64, RR 16, height 5 feet 1/2 inch, weight 202 pounds, body mass index 38.8, temperature 98.1, oxygen saturation at room air 98%. HEENT: PERRLA, EOMI. Evaluation of oropharynx showed tongue protrudes midline. Moderately low position of soft palate. Mallampati II to III. NECK: Supple. No JVD. Thyroid is not palpable. LUNGS: Clear to percussion and to auscultation. Good air exchange. No wheezing or rhonchi. HEART: S1, S2 regular. No murmurs, gallops or rubs. ABDOMEN: Slightly obese. EXTREMITIES: No clubbing or cyanosis. PAPER SALES REPRESENTATIVE: Awake, alert, and oriented X3. Cranial nerves 2 to 7 intact. There is no fasciculation or atrophy. noted. No focal deficits observed. IMPRESSION: 1. Obstructive sleep apnea-hypopnea syndrome. Patient demonstrated great compliance with treatment, benefitting from treatment. 2. Obesity. 3. Diabetes mellitus. 4. Hypertension in the office but no significant increasing blood pressure at home, according to patient. 5. History of migraines. 6. History of periodic limb movements during the sleep study, but no significant limb movements at night. 7. Status post bilateral cataract surgery. 8. Glaucoma. 9. Status post right hip surgery. 10.Status post surgery for umbilical hernia. PLAN: 1. I will maintain prescription for all necessary CPAP supplies, including mask, tube, filters. 2. Patient will continue to use CPAP equipment every night for the whole night. 3. Losing weight. 4. Sleep hygiene with regular time in bed for at least 7-2 to 8 hours. 5. No driving if feeling any sleepiness. 6. Follow-up visit in one year, or earlier if patient has any problems. Thank you very much for allowing me to participate in the management of your patient. Sincerely, Rowdy Valle MD, PhD, FAASM Diplomat of [place] [employer] [place] [employer] [facility] [place] MMODL / MAGDIELN: [id number] /
== END | disposition home or self-care (01) ==
LOC: SLEEP 14:29
PROVIDERS: ATTEND Internal Medicine
DX: G47.33 Obstructive sleep apnea (adult) (pediatric) (principal); E66.9 Obesity, unspecified; E11.9 Type 2 diabetes mellitus without complications; I10 Essential (primary) hypertension; H40.9 Unspecified glaucoma; Z87.39 Personal history of other diseases of the musculoskeletal system and connective tissue; Z68.38 Body mass index [BMI] 38.0-38.9, adult; Z99.89 Dependence on other enabling machines and devices; Z98.49 Cataract extraction status, unspecified eye; Z96.641 Presence of right artificial hip joint; Z98.890 Other specified postprocedural states; Z79.84 Long term (current) use of oral hypoglycemic drugs; Z79.899 Other long term (current) drug therapy

== ENCOUNTER → 2020-04-01 | Outpatient (CLI) | payer MEDICARE ==
[2020-04-01 18:33] LABS: HCT 41.7 % (34.0-46.0); MCH 26.4 pg (25.0-35.0); MCHC 31.1 g/dL (31.0-37.0); MCV 85.1 fL (80.0-100.0); Mean Platelet Volume 8.7; Platelet Count 286 k/uL (150-450); RDW 13.9 % (11.5-15.5); WBC 6.1 k/uL (3.8-10.6)
[2020-04-02 00:59] LABS: INR 1.03 (0.90-1.11); Prothrombin Time 11.1 sec (9.9-11.9)
[2020-04-02 04:38] LABS: % Iron Saturation 14.08 (12.00-45.00); ALT 41 U/L (8-44); AST 28 U/L (13-35); African American GFR (CKD) 53.4 (60.0-200.0); Albumin/Globulin Ratio 1.96 (1.60-3.17); Alkaline Phosphatase 81 U/L (41-126); BUN/Creat Ratio 21.67 Ratio (12.00-20.00); Calcium 10.1 mg/dL (8.7-10.3); Carbon Dioxide 26.7 mmol/L (21.6-31.8); Chloride 103 mmol/L (96-109); Chol/HDL Ratio 2.52; Cholesterol 189 mg/dL (0-200); Globulin 2.4 g/dL (1.6-3.3); Glucose 126 mg/dL (70-110); Iron 50 ug/dL (50-170); LDL Cholesterol,Calculated 94.4 mg/dL (0.0-131.0); Magnesium 1.8 mg/dL (1.5-2.4); Non-African American GFR(CKD) 46.1 (60.0-200.0); Phosphorus 4.4 mg/dL (2.4-5.1); Potassium 4.6 mmol/L (3.5-5.5); Sodium 140 mmol/L (135-145); Total Bilirubin 0.3 mg/dL (0.3-1.2); Total Iron Binding Capacity 355 ug/dL (228-460); Total Protein 7.1 g/dL (6.2-8.2)
[2020-04-02 04:47] LABS: Ferritin 95.8 ng/mL (10.0-291.0)
[2020-04-02 05:43] LABS: Folate, Serum >24.0 ng/mL
== END | disposition home or self-care (01) ==
LOC: LABWHC1 16:16
PROVIDERS: ATTEND Surgery Plastic and Reconstructive Surgery
DX: E66.01 Morbid (severe) obesity due to excess calories (principal); D50.8 Other iron deficiency anemias; K90.89 Other intestinal malabsorption; E55.9 Vitamin D deficiency, unspecified; K74.1 Hepatic sclerosis; N19 Unspecified kidney failure; K50.90 Crohn's disease, unspecified, without complications
CPT/HCPCS: 36415; 80053; 80061; 82306; 82525; 82607; 82728; 82746; 83540; 83550; 83735; 83970; 84100; 84134; 84255; 84425; 84443; 84590; 84630; 85027; 85610; 85730

== ENCOUNTER → 2020-04-01 | Outpatient (CLI) | payer MEDICARE ==
[2020-04-01 15:29] VITALS: BP 143/82; PULSE 80; RESP 18; TEMP 98; BMI 40.2
--- NOTE | 2020-04-01 15:35 | P.PN ---
Progress Note - Text Progress Note Date: 04/01/20 DATE OF SERVICE: 04/01/2020 CHIEF COMPLAINT: Status post gastric bypass HISTORY OF PRESENT ILLNESS: Deann Wild is a 67-year-old female who is status post gastric bypass to 06/05/2017. She is over 2 years out. She reports her blood surgar are better with a hemoglobin A1c of 6.9%. She denies low blood sugars. She has gained over 10 pounds in 1 year. She denies nausea or vomiting. She denies fevers or chills. She denies dysphagia. She can tolerate cookies. She reports occasional abdominal cramps with is new. She presents for increased epigastric abdominal pain. Her highest weight is 274 pounds. Her body mass index was 51.9. At her height of 5 feet 1, her ideal body weight is 131 pounds. She comes in 213 pounds from 200 pounds 1 year ago. She has gained 13 pounds in 1 year. Lifetime weight loss of 61 pounds. Percent excess weight loss 43 %. Body mass index reduced to 40.2. PAST MEDICAL HISTORY: 1. Morbid obesity due to excess calories 2. Previous body mass index of 51.9 3. Gastroesophageal reflux disease. 4. Obstructive sleep apnea. 5. Diabetes type 2 insulin-dependent. 6. Hypertensive heart disease. 7. Vitamin D deficiency. 8. Glaucoma. PAST SURGICAL HISTORY: 1. . 2. Right hip surgery. 3. Bilateral Cataract extraction 4. Status post gastric bypass HOME MEDICATIONS: Home Medications Medication Instructions Recorded Confirmed Insulin Glargine [Lantus] 16 units SQ HS 11/30/16 04/01/20 Omeprazole 40 mg PO QAM 05/25/17 04/01/20 metFORMIN HCL [Glucophage] 500 mg PO BID 07/05/17 04/01/20 Simvastatin [Zocor] 5 mg PO HS 04/01/20 04/01/20 Previous Rx's Medication Instructions Recorded Nystatin 100,000 Unit/gm Powd 1 applic TOPICAL BID #60 powder 09/06/17 [Mycostatin Powder] Nystatin 100,000 Unit/gm Powd 1 applic TOPICAL BID #60 powder 06/27/18 [Mycostatin Powder] Omeprazole 40 mg PO DAILY #90 capsule. 06/27/18 ALLERGIES: Allergies Allergy/AdvReac Type Severity Reaction Status Date / Time celecoxib [From Celebrex] Allergy Rash/Hives Verified 04/01/20 17:11 SOCIAL HISTORY: No active tobacco use. She is . FAMILY HISTORY: Has family history of ulcerative colitis disease and Crohn's disease. She does have a family history of morbid obesity. Significant for stomach cancer. REVIEW OF ORGAN SYSTEMS: CONSTITUTIONAL: Her highest weight is 274 pounds. Her body mass index was 51.9. At her height of 5 feet 1, her ideal body weight is 131 pounds. HEENT: Denies any active troubles with vision or hearing. Wears glassed. ENDOCRINE: Has diabetes. No hypothyroidism. CARDIOVASCULAR: No reports of palpitations or heart attacks or chest pain. RESPIRATORY: Has daytime somnolence including snoring, suspicious for sleep apnea. No recent asthma. GI: Denies any bright red blood per rectum, diarrhea or constipation. Does have gastroesophageal reflux disease as described above. : No reports of blood in urine. No bladder urgency. MUSCULOSKELETAL: Describes generalized muscle aches. Has lower back pain and joint pain, improved with weight loss NEURO: There were no reports of headaches or seizure disorders. PSYCH: Has depression without suicidal ideation. HEMATOLOGIC: Denies any abnormal bleeding or bruising. SKIN: No rash. No skin cancer. PHYSICAL EXAM: VITAL SIGNS: Height 5 foot 1 inches, weight 213 pounds. BMI 40.2 Vital Signs Temp 98 F 04/01/20 15:25 Pulse 80 04/01/20 15:25 Resp 18 04/01/20 15:25 BP 143/82 04/01/20 15:25 Pulse Ox GENERAL: Well-developed female in no acute distress. HEENT: No scleral icterus. Extraocular movements grossly intact. Hears conve rsational speech. No nasal drainage. NECK: Supple without lymphadenopathy. CHEST: Nonlabored respirations with equal bilateral excursions. CARDIOVASCULAR: Regular rate. Distal 2+ pulses. ABDOMEN: Obese, soft, nondistended. Nontender. MUSCULOSKELETAL: No clubbing, cyanosis, or edema. NEURO: No focal or lateralizing signs. Cranial nerves 2 through 12 grossly within normal limits. PSYCH: Appropriate affect. Alert and oriented to person, place and time. SKIN: Good skin turgor. Well perfused. ASSESSMENT: 1. Morbid obesity due to excess calories 2. Body mass index of 51.9 down to 40.2 3. Gastroesophageal reflux disease. 4. Obstructive sleep apnea. 5. Diabetes type 2 insulin-dependent. 6. Hypertensive heart disease. 7. Vitamin D deficiency. 8. Glaucoma. 9. Osteoarthritis involving the bilateral hips. 10. Osteoarthritis of the bilateral knees. 11. Dietary surveillance and counseling. 12. Status post gastric bypass 13. Iron deficiency anemia. 14. Panniculitis. 15. TSH suppressed. 16. Secondary hyperparathyroidism. 17. Panniculitis. 18. Status post gastric bypass 19. Weight gain following weight loss procedure 20. Dietary surveillance and couseling PLAN: 1. She has new epigastric abdominal pain with a history of gastric bypass. She is at risk for internal hernias. Recommend diagnostic laparoscopy with lysis of adhesions for closure of internal hernias. 2. Recommend bariatric labs. She has history of severe iron deficiency and may benefit from iron infuions 3. Recommend get back on track with food diary journal. 4. Recommend protein intake of 50+ grams daily 5. Recommend 2 week protein shake.
== END | disposition home or self-care (01) ==
LOC: BARWHC3 15:07
PROVIDERS: ATTEND Surgery Plastic and Reconstructive Surgery
DX: E66.01 Morbid (severe) obesity due to excess calories (principal); G47.33 Obstructive sleep apnea (adult) (pediatric); K21.9 Gastro-esophageal reflux disease without esophagitis; E11.9 Type 2 diabetes mellitus without complications; I11.9 Hypertensive heart disease without heart failure; E55.9 Vitamin D deficiency, unspecified; M16.0 Bilateral primary osteoarthritis of hip; M17.0 Bilateral primary osteoarthritis of knee; D50.9 Iron deficiency anemia, unspecified; H40.9 Unspecified glaucoma; M79.3 Panniculitis, unspecified; E21.1 Secondary hyperparathyroidism, not elsewhere classified; Z79.4 Long term (current) use of insulin; Z71.3 Dietary counseling and surveillance; Z68.43 Body mass index [BMI] 50.0-59.9, adult; Z79.899 Other long term (current) drug therapy; Z98.84 Bariatric surgery status
CPT/HCPCS: 99211